=== PATIENT | female | born 1970 | race Caucasian/White ===

== ENCOUNTER 2022-04-23 21:53 | Inpatient (IN) | payer OTHER, SELFPAY ==
[2022-04-23] MEDS: busPIRone HCl 10 MG TABLET 20 MG PO (23:23)
[2022-04-23] MEDS: traZODone HCL 50 MG TABLET PO (23:23)
[2022-04-23] MEDS: clonazePAM 1 MG TABLET PO (23:23)
--- NOTE | 2022-04-23 23:59 | PC.NURSE ---
pt signed a 3-day notice on 04-23-22, up on 04/28/22
--- NOTE | 2022-04-24 01:14 | PC.ADMIT ---
pt. is a 51 year old white [place] Islander speaking woman who presents to [facility] from the [facility] [place] [place] at approx. 22:10 on a CV status. Pt. signed upon arrival a 3 day notice. Pt. is Covid neg. Pt. was admitted per section 12 to the ED at [facility] on 04/20 22 related to psychosis and confusion. Pt. has a previous DX of major depressive disorder and generalized anxiety per medical report. During her assessment at [facility] Pt. contradicted herself on and off. She denied trauma but reported her sister committed suicide. Pt. appeared confused and paranoid at times, selective with answers to questions, not forthcoming at times but friendly, superficially cheerful with good eye contact. She stated she is having menopause and this is causing her mind not working . medication orders received by Ema TURPIN, Pt. was oriented to unit. Pt. is on 5 min. checks, treatment plan was done upon arrival. flu shot and nicotine replacement were ordered, Pt. reported she vapes'. Pt reported she feels safe, she was oriented to the unit
[2022-04-24 09:10] LABS: Estimated Average Glucose 105 mg/dL; Hemoglobin A1c % 5.3 %
[2022-04-24 09:19] LABS: Alanine Aminotransferase 23 U/L (0-31); Albumin Level 3.7 g/dL (3.5-5.0); Alkaline Phosphatase 44 U/L (39-117); Anion Gap 14 (12-20); Aspartate Amino Transferase 15 U/L (5-31); Bilirubin Total 0.8 mg/dL (0.0-1.0); Blood Urea Nitrogen 12 mg/dL (9-16); Calcium 9.2 mg/dL (8.4-10.2); Carbon Dioxide 30 mmol/L (22-29); Chloride 104 mmol/L (96-108); Cholesterol 147 mg/dL; Estimated Glomerular Filt Rate > 60; Glucose Fasting 92 mg/dL (60-99); HDL Cholesterol 38 mg/dL; LDL Cholesterol Calculated 96 mg/dl; Magnesium 1.8 mg/dL (1.6-2.6); Sodium 144 mmol/L (135-145); Total Protein 5.9 g/dL (6.5-8.0); Triglycerides 65 mg/dL
[2022-04-24] MEDS: Escitalopram Oxalate 10 MG TABLET PO (09:23)
[2022-04-24] MEDS: busPIRone HCl 10 MG TABLET 20 MG PO ×2 (09:23→20:23)
[2022-04-24] MEDS: clonazePAM 1 MG TABLET PO ×2 (09:23→20:23)
[2022-04-24 09:42] LABS: Free T4 (Free Thyroxine) 1.22 ng/dL (0.71-1.85); Thyroid Stimulating Hormone 0.44 uIU/mL (0.32-4.0)
--- NOTE | 2022-04-24 10:41 | HO.PSYADMNOT ---
[facility] Date of Service: 04/24/22 Chief Complaint: Major depressive disorder,recurrent episode with Sources of Information: patient interviewed, chart reviewed and crisis/core team assessment reviewed [facility] Subjective Notes: Nunez Warning and Conditional Voluntary Narrative: Patient is a 51-year-old female with history anxiety, PTSD, paranoid thoughts, alcohol abuse sober for 4 months, who presents for 3-4 days of confused disorganized behavior, brought in by her fiance to the emergency room. Patient is a little disorganized in her explanation of events preceding this admission and says she was indeed confused. She is not sure what the trigger was but thinks that it was 1 of her 8 sisters texting her saying that her fiance was having an affair. Patient said to deal with this stress of this, she started smoking excessive amounts of cannabis. Patient says she was confused for 3 days, not sleeping, having lots of energy, mind racing that would not stop and doing things like putting her underwear in her sock drawer. Crisis note includes that patient presented to the emergency room dehydrated, not having eaten for 4 days, disorganized, at times screaming out of nowhere and then sitting back down as if nothing happened, very anxious and refusing to talk to any providers and paranoid that people were after her.. Patient agrees that when she got to the emergency room she was very scared and did not want to talk to anybody, worried that she would be put away permanently in a psychiatric cab[facility]. She also says she saw people at the hospital who were not supposed to be there, 1 person being her ex-'s girlfriend who pointed at her and said i'm going to kick your... Patient said that nobody else saw them tell her it is at a hallucination however she says it is real. Patient denies any AVH; she denies any other history of manic type episodes. She denies SI or HI. She says she started to feel more calm and much less confused. She also said she got off Wellbutrin when going to the ED and wonders if Wellbutrin was partly the cause of this agitation. 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 Sober for 4 months; was on Vivitrol but no longer saying it made her nauseous Denies other drug use other than cannabis Trauma History: Patient endorses history of trauma and she was little; has flashbacks Diagnostics Vital Signs (24Hr): Vital Signs - 24 hr 04/23/22 23:55 Temperature 97.0 F Pulse Rate 76 Respiratory Rate 16 Blood Pressure 134/70 Pulse Oximetry 99 Oxygen Delivery Method Room Air Labs Results: 04/24/22 07:35 Labs: Laboratory Results - last 48 hr 04/24/22 04/24/22 07:35 07:35 Sodium 144 Potassium 4.0 Chloride 104 Carbon Dioxide 30 H Anion Gap 14 BUN 12 Creatinine 0.64 Estim Creat Clear Calc TNP Estimated GFR > 60 Fasting Glucose 92 Estimat Average Glucose 105 Hemoglobin A1c % 5.3 Calcium 9.2 Magnesium 1.8 Total Bilirubin 0.8 AST 15 ALT 23 Alkaline Phosphatase 44 Total Protein 5.9 L Albumin 3.7 Triglycerides 65 Cholesterol 147 LDL Cholesterol, Calc 96 HDL Cholesterol 38 TSH 0.44 Free T4 1.22 Meds/Allergies Allergies Allergies Allergy/AdvReac Type Severity Reaction Status Date / Time No Known Allergies Allergy Verified 04/23/22 22:16 Mental Status Exam Mental Status Exam Narrative: Pt is alert and oriented; behavior is cooperative, friendly, fidgety; patient is not in distress; dressed in hospital attire with unkempt hair but adequate hygiene; mood is described as ok and affect anxious; eye contact appropriate; Speech is mildly pressured; normal volume and prosody and not pressured; no psychomotor agitation/retardation present; thought process can be goal directed but also tangential; Thought content is on making sense of past week; also on tx; otherwise pertinent to relevant topics; some delusional content and paranoid thinking; denies any SI/HI. There is no evidence of perceptual disturbance and denies AVH. Patients insight and judgment are impaired. Assessment & Plan Assessment & Plan (1) Major depressive disorder: Status: Acute Code(s): F32.9 - Major depressive disorder, single episode, unspecified (2) Cannabis abuse, daily use: Status: Acute Code(s): F12.10 - Cannabis abuse, uncomplicated Plan Patient is a 51-year-old female with history anxiety, PTSD, paranoid thoughts, alcohol abuse sober for 4 months, who presents for 3-4 days of confused disorganized behavior, brought in by her fiance to the emergency room. Patient is a little disorganized in her explanation of events preceding this admission and says she was indeed confused. -patient has what sounds like a manic episode that lasted for 4 days and marked by disorganized behavior, not eating or drinking, not sleeping and very confused; possibly triggered by stress or Wellbutrin. That said patient denies any other episodes of иван and she is not on medications for bipolar. Will leave it as a rule out for now until we can get more collateral. Patient also has a prescription for Zyprexa 5 mg as a p.r.n. for paranoid thinking. -will add Zyprexa 2.5 mg q.h.s. for now; although she has much anxiety, to not want to increase Lexapro (substituted for citalopram) until bipolar can be ruled out. Plan: Three day notice Continue Lexapro 10 mg (substituted for patient's home medication citalopram 20 mg) Continue BuSpar 20 mg b.i.d. Continue clonazepam 1 mg b.i.d. Start Zyprexa 2.5 mg q.h.s. for stability Added clonidine for anxiety Will gather collateral Patient educated on: diagnosis, medication risk/benefits and substance abuse Informed Consent: understands and further education needed Reason for continued inpatient stay Substantial Risk for: inability to function
[2022-04-24] MEDS: OLANZapine 2.5 MG TABLET PO ×2 (11:20→20:22)
--- NOTE | 2022-04-24 12:43 | P.CONHOSP_ITS ---
History of Present Illness Data of Consult Service Date: 04/24/22 Requesting physician: Ema García Primary Care Provider: Unknown Physician HPI Reason for consult: medical h&p 51 year old female with depression, who is a daily marijuana smoker and vapes nicotine admitted to psychiatry. She denies any chronic medical issues and denies and medical concerns at this time. States she has been struggling with depression since the loss of her mother and father to covid-19. Review of Systems Review of Systems: General: No fevers, malaise, unintentional weight loss HEENT: No blurred vision, diplopia Cardiovascular: No chest pain, palpitations, or leg edema Respiratory: No shortness of breath, wheezing, cough GI: No abdominal pain, nausea, vomiting, diarrhea, constipation, melena, hematochezia : No dysuria, hematuria Neuro: No headaches, weakness, paresthesias Psych: +dpression Skin: No rashes or lesions PMFSH Medical History Cannabis abuse, daily use Major depressive disorder Nicotine dependence due to vaping non-tobacco product Social History Household Members: Significant Other Housing: House Do you presently have visiting nurse or other home services: No Patient Tobacco Use Status: Former Tobacco user Years Smoked: 20 years Smoked in Last 30 Days: Yes e-Cigarette/Vaping Use: Currently Using Frequency of e-Cigarette/Vaping Use: vapes every day Patient Interested in Nicotine Replacement: Yes Patient Given Instructions on How to Stop Smoking: No Second Hand Smoke Exposure: No Use of substances other than those prescribed or required for medical reasons: Unknown Have you been hit, kicked, punched, or otherwise hurt by someone within the past year? If so, by whom?: No Do you feel safe in your current relationship?: Yes Is there a partner from a previous relationship who is making you feel unsafe now?: Yes ( my sisters are bad ) Are you made to feel afraid or neglected: No Spiritual Healthcare Practices: no Orthodoxy Healthcare Practices: latter-day Cultural Healthcare Practices: no Advance Directives: No Advance Directives Information Provided: No Advance Directives on File: No Advance Directives Date on File: 04/23/22 Do you have thoughts of harming others: None Do you have a plan to hurt others: No Plan Recently lost weight without trying: Yes How much weight loss: 2-13 pounds Eating poorly because of decreased appetite: No Nutrition screen score: 3 Nutrition Risks: No Nutritional Risk Patient : No : No Poor oral hygiene: No Meds Allergies Allergy/AdvReac Type Severity Reaction Status Date / Time No Known Allergies Allergy Verified 04/23/22 22:16 Active Medications: Current Medications Acetaminophen (Acetaminophen 325 Mg Tablet) 650 mg PO Q6H PRN PRN Reason: Headache/Pain Mild Scale (1-3) Al Hydroxide/Mg Hydroxide (Magnesium Hydrox/Alum Hydrox 30 Ml Oral.Susp) 30 ml PO Q6H PRN PRN Reason: Heartburn/Nausea Buspirone HCl (Buspirone Hcl 10 Mg Tablet) 20 mg PO BID [facility] Last Admin: 04/24/22 09:23 Dose: 20 mg Clonazepam (Clonazepam 1 Mg Tablet) 1 mg PO BID [facility] Last Admin: 04/24/22 09:23 Dose: 1 mg Escitalopram Oxalate (Escitalopram Oxalate 10 Mg Tablet) 10 mg PO DAILY [facility] Last Admin: 04/24/22 09:23 Dose: 10 mg Hydroxyzine HCl (Hydroxyzine Hcl 25 Mg Tablet) 25 mg PO Q6H PRN PRN Reason: Anxiety Magnesium Hydroxide (Milk Of Magnesia 30 Ml Oral.Susp) 30 ml PO DAILY PRN PRN Reason: Constipation Olanzapine (Olanzapine 2.5 Mg Tablet) 2.5 mg PO BID [facility] Trazodone HCl (Trazodone Hcl 50 Mg Tablet) 50 mg PO BEDTIME PRN PRN Reason: Insomnia Last Admin: 04/23/22 23:23 Dose: 50 mg Physical Exam Vital Signs and Narrative: Vital Signs: Last Vital Signs Temp 97.0 F 04/23/22 23:55 Pulse 76 04/23/22 23:55 Resp 16 04/23/22 23:55 BP 134/70 04/23/22 23:55 Pulse Ox 99 04/23/22 23:55 O2 Del Method 04/23/22 23:55 Constitutional - Awake and Alert, No apparent distress Eyes - PERRLA, EOMI Cardiovascular - S1S2, RRR, No edema Respiratory - Normal lung expansion, Normal respiratory effort, No respiratory distress, CTA bilaterally Gastrointestinal - NT / ND; +BS; No rebound or guarding Extremities - no calf tenderness bilaterally, no swelling Skin - Warm/Dry Neurological - Alert & oriented x3, CN II -XII intact, 5/5 strength BUE and BLE Psychological - Appropriate affect Results Labs CBC and Chem 7: 04/24/22 07:35 Labs: Laboratory Results - last 24 hr 04/24/22 04/24/22 07:35 07:35 Anion Gap 14 Estim Creat Clear Calc TNP Estimated GFR > 60 Fasting Glucose 92 Estimat Average Glucose 105 Hemoglobin A1c % 5.3 Calcium 9.2 Magnesium 1.8 Total Bilirubin 0.8 AST 15 ALT 23 Alkaline Phosphatase 44 Total Protein 5.9 L Albumin 3.7 Triglycerides 65 Cholesterol 147 LDL Cholesterol, Calc 96 HDL Cholesterol 38 TSH 0.44 Free T4 1.22 Assessment and Plan (1) Major depressive disorder: Status: Acute Plan 51 year old female with depression, who is a daily marijuana smoker and vapes nicotine admitted to psychiatry. 1- Major depressive disorder, currently active -Plan per psychiatry 2-Nicotine vaping -Last use 5 days ago -Pt desires to quit. No NRT 3-Daily Marijuana use -Recommend against smoking, would recommend edible instead. -However, plan per psychiatry. Thank you for allowing me to participate in this consult. Signing off at this time. Please do not hesitate to call for further questions.
[2022-04-24 18:00] VITALS: BP 119/78; PULSE 79; RESP 16; TEMP 36.6; O2SAT 99
[2022-04-25] MEDS: Acetaminophen 325 MG TABLET 650 MG PO (05:50)
[2022-04-25] MEDS: Escitalopram Oxalate 10 MG TABLET PO (08:59)
[2022-04-25] MEDS: busPIRone HCl 10 MG TABLET 20 MG PO ×2 (08:59→20:11)
[2022-04-25] MEDS: clonazePAM 1 MG TABLET PO ×2 (09:00→20:11)
--- NOTE | 2022-04-25 14:33 | HO.PSYCHPN ---
Subjective Subjective Date of Service: 04/25/22 Reason For Visit: Major depressive disorder,recurrent episode with Interim History: Patient reports that she is doing well. She says her mood is good and denies any SI or HI or AVH. She also says that she feels much more clear minded And that Confusion has pretty much fully resolved. Patient said she would be happy to sign a release of information so that team could talk to her fiance. Mental Status Exam Mental Status Exam Narrative: Pt is alert and oriented; behavior is cooperative, friendly, fidgety; patient is not in distress; dressed in hospital attire with unkempt hair but adequate hygiene; mood is described as better and affect congruent, less anxious; eye contact appropriate; Speech is normal volume and prosody and not pressured; no psychomotor agitation/retardation present; thought process can be goal directed, still tangential but less; Thought content is on making sense of past week; also on tx; otherwise pertinent to relevant topics; some delusional content and paranoid thinking; denies any SI/HI. There is no evidence of perceptual disturbance and denies AVH. Patients insight and judgment are impaired but seem improved. Diagnostics Vital Signs (24Hr): Vital Signs - 24 hr 04/24/22 18:00 Temperature 98 F Pulse Rate 79 Respiratory Rate 16 Blood Pressure 119/78 Pulse Oximetry 99 Oxygen Delivery Method Room Air Labs Results: 04/24/22 07:35 Labs: Laboratory Results - last 48 hr 04/24/22 04/24/22 07:35 07:35 Sodium 144 Potassium 4.0 Chloride 104 Carbon Dioxide 30 H Anion Gap 14 BUN 12 Creatinine 0.64 Estim Creat Clear Calc TNP Estimated GFR > 60 Fasting Glucose 92 Estimat Average Glucose 105 Hemoglobin A1c % 5.3 Calcium 9.2 Magnesium 1.8 Total Bilirubin 0.8 AST 15 ALT 23 Alkaline Phosphatase 44 Total Protein 5.9 L Albumin 3.7 Triglycerides 65 Cholesterol 147 LDL Cholesterol, Calc 96 HDL Cholesterol 38 TSH 0.44 Free T4 1.22 Medications Medications Current Medications Acetaminophen (Acetaminophen 325 Mg Tablet) 650 mg PO Q6H PRN PRN Reason: Headache/Pain Mild Scale (1-3) Last Admin: 04/25/22 05:50 Dose: 650 mg Al Hydroxide/Mg Hydroxide (Magnesium Hydrox/Alum Hydrox 30 Ml Oral.Susp) 30 ml PO Q6H PRN PRN Reason: Heartburn/Nausea Buspirone HCl (Buspirone Hcl 10 Mg Tablet) 20 mg PO BID [facility] Last Admin: 04/25/22 08:59 Dose: 20 mg Clonazepam (Clonazepam 1 Mg Tablet) 1 mg PO BID [facility] Last Admin: 04/25/22 09:00 Dose: 1 mg Clonidine HCl (Clonidine Hcl 0.1 Mg Tablet) 0.1 mg PO Q4H PRN; Protocol PRN Reason: anxiety Escitalopram Oxalate (Escitalopram Oxalate 10 Mg Tablet) 10 mg PO DAILY [facility] Last Admin: 04/25/22 08:59 Dose: 10 mg Hydroxyzine HCl (Hydroxyzine Hcl 25 Mg Tablet) 25 mg PO Q6H PRN PRN Reason: Anxiety Magnesium Hydroxide (Milk Of Magnesia 30 Ml Oral.Susp) 30 ml PO DAILY PRN PRN Reason: Constipation Olanzapine (Olanzapine 2.5 Mg Tablet) 2.5 mg PO BEDTIME [facility] Last Admin: 04/24/22 20:22 Dose: 2.5 mg Trazodone HCl (Trazodone Hcl 50 Mg Tablet) 50 mg PO BEDTIME PRN PRN Reason: Insomnia Last Admin: 04/23/22 23:23 Dose: 50 mg Allergies Allergies Allergy/AdvReac Type Severity Reaction Status Date / Time No Known Allergies Allergy Verified 04/23/22 22:16 Assessment & Plan Assessment & Plan (1) Major depressive disorder: Status: Acute Code(s): F32.9 - Major depressive disorder, single episode, unspecified (2) Cannabis abuse, daily use: Status: Acute Code(s): F12.10 - Cannabis abuse, uncomplicated Plan Patient is a 51-year-old female with history anxiety, PTSD, paranoid thoughts, alcohol abuse sober for 4 months, who presents for 3-4 days of confused disorganized behavior, brought in by her fiance to the emergency room. Patient is a little disorganized in her explanation of events preceding this admission and says she was indeed confused. -patient has what sounds like a manic episode that lasted for 4 days and marked by disorganized behavior, not eating or drinking, not sleeping and very confused; possibly triggered by stress or Wellbutrin. That said patient denies any other episodes of иван and she is not on medications for bipolar. Will leave it as a rule out for now until we can get more collateral. Patient also has a prescription for Zyprexa 5 mg as a p.r.n. for paranoid thinking. -will add Zyprexa 2.5 mg q.h.s. for now; although she has much anxiety, to not want to increase Lexapro (substituted for citalopram) until bipolar can be ruled out. 04/25 patient says she is feeling a better today, good mood and feeling much more clear minded, less confused and less anxious. She agrees to have team talk to her fiance. Collateral will certainly help inform treatment Plan: Three day notice Continue Lexapro 10 mg (substituted for patient's home medication citalopram 20 mg) Continue BuSpar 20 mg b.i.d. Continue clonazepam 1 mg b.i.d. Start Zyprexa 2.5 mg q.h.s. for stability Added clonidine for anxiety Will gather collateral I spent minutes with the patient and/or on the patient floor today, greater than?50% of which was spent counseling/coordinating care. Patient educated on: diagnosis and medication risk/benefits Informed Consent: understands Reason for contiued inpatient stay Substantial Risk for: med/psych decompensation
[2022-04-25 18:00] VITALS: BP 149/67; PULSE 82; RESP 16; TEMP 36.6; O2SAT 98
[2022-04-25] MEDS: OLANZapine 2.5 MG TABLET PO (20:11)
[2022-04-26 06:01] LABS: Folate 5.7 ng/mL (> or = 4.0); Vitamin B12 239 pg/mL (200-900)
[2022-04-26 08:03] VITALS: BP 129/59; PULSE 70; TEMP 36.3
[2022-04-26] MEDS: Escitalopram Oxalate 10 MG TABLET PO (09:08)
[2022-04-26] MEDS: busPIRone HCl 10 MG TABLET 20 MG PO ×2 (09:08→21:30)
[2022-04-26] MEDS: clonazePAM 1 MG TABLET PO ×2 (09:08→21:30)
--- NOTE | 2022-04-26 13:49 | P.PNPSI_ITS ---
Subjective Subjective Date of Service: 04/26/22 Reason For Visit: Major depressive disorder,recurrent episode with Interim History: Patient says she is feeling better and of note she has a brighter affect, is well dressed and well groomed. She says that she is feeling more clear minded a nd no longer has shakey hands due to anxiety. She said that today, she got up, dressed and is eating well. Patient shared a little more and said that what triggered this dysregulation was an intense family argument. She said it was personal in nature and did not want to discuss it more but that was the onset. Patient and curriculum writer reviewed medication history and patient does not remember being him prescribed Zyprexa back in October saying she was drinking back then and probably just does not remember. Patient also shared that her father in 2019 and then her mother 8 months ago, both from COVID which has been very upsetting. Patient started to get tearful when discussing. She also cites strained family relationships as another contribution which is part of what the family argument was about. Patient says she feels ready to go. She denies any SI or HI. She says she is sleeping well. Denies any AVH. She feels that her medications are good. Patient intermittently puckers her lips when talking; she denies history of being on antipsychotics that she can remember. She says she is well aware of this and only does it when she is anxious. Mental Status Exam Mental Status Exam Narrative: Pt is alert and oriented; behavior is cooperative, friendly; patient is not in distress; dressed in casual attired, well groomed; mood is described as good and affect congruent, bright, calmer; intermittently puckers her lips which she says is due to nerves. eye contact appropriate; Speech is normal volume and prosody and not pressured; no psychomotor agitation/retardation present; thought process is goal directed and linear; can be distracted too; Thought content is on going home, feeling better; otherwise pertinent to relevant topics; some delusional content and paranoid thinking; denies any SI/HI. There is no evidence of perceptual disturbance and denies AVH. Patients insight and judgment are fair. Diagnostics Vital Signs (24Hr): Vital Signs - 24 hr 04/25/22 18:00 04/26/22 08:03 Temperature 98 F 97.4 F Pulse Rate 82 70 Respiratory Rate 16 Blood Pressure 149/67 H 129/59 L Pulse Oximetry 98 Oxygen Delivery Method Room Air Labs Results: 04/24/22 07:35 Labs: Laboratory Results - last 48 hr 04/24/22 07:35 Vitamin B12 239 Folate 5.7 Medications Medications Current Medications Acetaminophen (Acetaminophen 325 Mg Tablet) 650 mg PO Q6H PRN PRN Reason: Headache/Pain Mild Scale (1-3) Last Admin: 04/25/22 05:50 Dose: 650 mg Al Hydroxide/Mg Hydroxide (Magnesium Hydrox/Alum Hydrox 30 Ml Oral.Susp) 30 ml PO Q6H PRN PRN Reason: Heartburn/Nausea Buspirone HCl (Buspirone Hcl 10 Mg Tablet) 20 mg PO BID [facility] Last Admin: 04/26/22 09:08 Dose: 20 mg Clonazepam (Clonazepam 1 Mg Tablet) 1 mg PO BID [facility] Last Admin: 04/26/22 09:08 Dose: 1 mg Clonidine HCl (Clonidine Hcl 0.1 Mg Tablet) 0.1 mg PO Q4H PRN; Protocol PRN Reason: anxiety Escitalopram Oxalate (Escitalopram Oxalate 10 Mg Tablet) 10 mg PO DAILY [facility] Last Admin: 04/26/22 09:08 Dose: 10 mg Hydroxyzine HCl (Hydroxyzine Hcl 25 Mg Tablet) 25 mg PO Q6H PRN PRN Reason: Anxiety Magnesium Hydroxide (Milk Of Magnesia 30 Ml Oral.Susp) 30 ml PO DAILY PRN PRN Reason: Constipation Olanzapine (Olanzapine 2.5 Mg Tablet) 2.5 mg PO BEDTIME [facility] Last Admin: 04/25/22 20:11 Dose: 2.5 mg Trazodone HCl (Trazodone Hcl 50 Mg Tablet) 50 mg PO BEDTIME PRN PRN Reason: Insomnia Last Admin: 04/23/22 23:23 Dose: 50 mg Allergies Allergies Allergy/AdvReac Type Severity Reaction Status Date / Time No Known Allergies Allergy Verified 04/23/22 22:16 Assessment & Plan Assessment & Plan (1) Major depressive disorder: Status: Acute Code(s): F32.9 - Major depressive disorder, single episode, unspecified (2) Cannabis abuse, daily use: Status: Acute Code(s): F12.10 - Cannabis abuse, uncomplicated Plan Patient is a 51-year-old female with history anxiety, PTSD, paranoid thoughts, alcohol abuse sober for 4 months, who presents for 3-4 days of confused disorganized behavior, brought in by her fiance to the emergency room. Patient is a little disorganized in her explanation of events preceding this admission and says she was indeed confused. -patient has what sounds like a manic episode that lasted for 4 days and marked by disorganized behavior, not eating or drinking, not sleeping and very confused; possibly triggered by stress or Wellbutrin. That said patient denies any other episodes of иван and she is not on medications for bipolar. Will leave it as a rule out for now until we can get more collateral. Patient also has a prescription for Zyprexa 5 mg as a p.r.n. for paranoid thinking. -will add Zyprexa 2.5 mg q.h.s. for now; although she has much anxiety, to not want to increase Lexapro (substituted for citalopram) until bipolar can be ruled out. 04/25 patient says she is feeling a better today, good mood and feeling much more clear minded, less confused and less anxious. She agrees to have team talk to her fiance. Collateral will certainly help inform treatment 04/26 patient says her mood is good and that she is feeling ready to go home. Of note, affect is brighter and calmer; she is well dressed and well groomed. She feels medications are helpful. She thinks that the trigger for this several days of dysregulation was an intense, upsetting family argument that she does not want to discuss. She says I was not even eating or drinking for days but that this has fully resolved and she is doing well now. Feels medications are helpful and wants to continue with current regimen -is still not clear to curriculum writer if she has a history of hypomanic episodes as patient herself is not sure. However while this past event does sound like a hypomanic episode, curriculum writer agrees it is possible for her to be triggered by a combination of PTSD and proclivity to emotional dysregulation. Patient gave permission to curriculum writer and administrator social welfare to call her sister and catracho to discuss. Plan: Three day notice Continue Lexapro 10 mg (substituted for patient's home medication citalopram 20 mg) Continue BuSpar 20 mg b.i.d. Continue clonazepam 1 mg b.i.d. Start Zyprexa 2.5 mg q.h.s. for stability Added clonidine for anxiety Will gather collateral I spent minutes with the patient and/or on the patient floor today, greater than?50% of which was spent counseling/coordinating care. Patient educated on: diagnosis, medication risk/benefits and substance abuse Informed Consent: understands Reason for contiued inpatient stay Substantial Risk for: stable for discharge
[2022-04-26 18:00] VITALS: BP 122/65; PULSE 81; RESP 18; TEMP 37.1
[2022-04-26] MEDS: hydrOXYzine HCL 25 MG TABLET PO (18:19)
[2022-04-26] MEDS: OLANZapine 2.5 MG TABLET PO (21:30)
[2022-04-27 08:03] VITALS: BP 110/71; PULSE 93; TEMP 36.1
[2022-04-27] MEDS: clonazePAM 1 MG TABLET PO ×2 (08:58→20:54)
[2022-04-27] MEDS: Escitalopram Oxalate 10 MG TABLET PO (08:58)
[2022-04-27] MEDS: busPIRone HCl 10 MG TABLET 20 MG PO ×2 (08:58→20:54)
--- NOTE | 2022-04-27 10:18 | HO.PSYCHPN ---
Subjective Subjective Date of Service: 04/27/22 Reason For Visit: Major depressive disorder,recurrent episode with Interim History: Patient reports that she remains in good mood and is looking for to going home. She is afraid of 1 of the other patients on the unit who is intrusive and aggressive but patient has been able to cope and grateful to staff for helping. Patient remains eager for discharge tomorrow. She denies any SI or HI or AVH. She has been in good mood, with bright affect, well-groomed, attending groups and expressing gratitude for the help she has received, feeling that the group material has been helpful. Patient has remained in good behavioral and impulse control. Patient had team call both /fiancee and sister. Sister reports that patient has a history of intermittently getting delusional and sometimes hearing voices; also has had past time where she had paranoid delusions that people were spitting in her food. Report sounds that it is possible she had some intermittent hypomania in her history but this is not conclusive. Patient is not able to confirm. However sister says she had no such episodes prior to her parents 2 years. Patient's fiancee who has been together with patient for 10 years, corroborated that prior to her parents there were no episodes or significant problems other than some anxiety. After her mother's , patient would sometimes get paranoid and accuse him of infidelity; 1 she pushed him and made a threat and police came.; once she was outside without much clothing disorganized. Given this collateral, Sheet Rocker discussed with patient who agrees that she would benefit from increased dose of Zyprexa Mental Status Exam Mental Status Exam Narrative: Pt is alert and oriented; behavior is cooperative, friendly; patient is not in distress; dressed in casual attired, well groomed; mood is described as good and affect congruent, bright, calmer; intermittently puckers her lips which she says is due to nerves. eye contact appropriate; Speech is normal volume and prosody and not pressured; no psychomotor agitation/retardation present; thought process is goal directed and linear; can be distracted too; Thought content is on going home, feeling better; otherwise pertinent to relevant topics; some delusional content and paranoid thinking; denies any SI/HI. There is no evidence of perceptual disturbance and denies AVH. Patients insight and judgment are fair. Diagnostics Vital Signs (24Hr): Vital Signs - 24 hr 04/26/22 18:00 04/27/22 08:03 Temperature 98.7 F 97 F Pulse Rate 81 93 Respiratory Rate 18 Blood Pressure 122/65 110/71 Labs Results: 04/24/22 07:35 Labs: Laboratory Results - last 48 hr 04/24/22 07:35 Vitamin B12 239 Folate 5.7 Medications Medications Current Medications Acetaminophen (Acetaminophen 325 Mg Tablet) 650 mg PO Q6H PRN PRN Reason: Headache/Pain Mild Scale (1-3) Last Admin: 04/25/22 05:50 Dose: 650 mg Al Hydroxide/Mg Hydroxide (Magnesium Hydrox/Alum Hydrox 30 Ml Oral.Susp) 30 ml PO Q6H PRN PRN Reason: Heartburn/Nausea Buspirone HCl (Buspirone Hcl 10 Mg Tablet) 20 mg PO BID [facility] Last Admin: 04/27/22 08:58 Dose: 20 mg Clonazepam (Clonazepam 1 Mg Tablet) 1 mg PO BID [facility] Last Admin: 04/27/22 08:58 Dose: 1 mg Clonidine HCl (Clonidine Hcl 0.1 Mg Tablet) 0.1 mg PO Q4H PRN; Protocol PRN Reason: anxiety Escitalopram Oxalate (Escitalopram Oxalate 10 Mg Tablet) 10 mg PO DAILY [facility] Last Admin: 04/27/22 08:58 Dose: 10 mg Hydroxyzine HCl (Hydroxyzine Hcl 25 Mg Tablet) 25 mg PO Q6H PRN PRN Reason: Anxiety Last Admin: 04/26/22 18:19 Dose: 25 mg Magnesium Hydroxide (Milk Of Magnesia 30 Ml Oral.Susp) 30 ml PO DAILY PRN PRN Reason: Constipation Olanzapine (Olanzapine 2.5 Mg Tablet) 2.5 mg PO BEDTIME [facility] Last Admin: 04/26/22 21:30 Dose: 2.5 mg Trazodone HCl (Trazodone Hcl 50 Mg Tablet) 50 mg PO BEDTIME PRN PRN Reason: Insomnia Last Admin: 04/23/22 23:23 Dose: 50 mg Allergies Allergies Allergy/AdvReac Type Severity Reaction Status Date / Time No Known Allergies Allergy Verified 04/23/22 22:16 Assessment & Plan Assessment & Plan (1) Major depressive disorder: Status: Acute Code(s): F32.9 - Major depressive disorder, single episode, unspecified (2) Cannabis abuse, daily use: Status: Acute Code(s): F12.10 - Cannabis abuse, uncomplicated Plan Patient is a 51-year-old female with history anxiety, PTSD, paranoid thoughts, alcohol abuse sober for 4 months, who presents for 3-4 days of confused disorganized behavior, brought in by her fiance to the emergency room. Patient is a little disorganized in her explanation of events preceding this admission and says she was indeed confused. -patient has what sounds like a manic episode that lasted for 4 days and marked by disorganized behavior, not eating or drinking, not sleeping and very confused; possibly triggered by stress or Wellbutrin. That said patient denies any other episodes of иван and she is not on medications for bipolar. Will leave it as a rule out for now until we can get more collateral. Patient also has a prescription for Zyprexa 5 mg as a p.r.n. for paranoid thinking. -will add Zyprexa 2.5 mg q.h.s. for now; although she has much anxiety, to not want to increase Lexapro (substituted for citalopram) until bipolar can be ruled out. 04/25 patient says she is feeling a better today, good mood and feeling much more clear minded, less confused and less anxious. She agrees to have team talk to her fiance. Collateral will certainly help inform treatment 04/26 patient says her mood is good and that she is feeling ready to go home. Of note, affect is brighter and calmer; she is well dressed and well groomed. She feels medications are helpful. She thinks that the trigger for this several days of dysregulation was an intense, upsetting family argument that she does not want to discuss. She says I was not even eating or drinking for days but that this has fully resolved and she is doing well now. Feels medications are helpful and wants to continue with current regimen -is still not clear to proposal writer if she has a history of hypomanic episodes as patient herself is not sure. However while this past event does sound like a hypomanic episode, proposal writer agrees it is possible for her to be triggered by a combination of PTSD and proclivity to emotional dysregulation. Patient gave permission to proposal writer and social contact worker to call her sister and fiancee to discuss. 04/27 Patient's sister and fiancee shared that prior to her parents , patient has not had any such episodes. After her mother's 2 years ago patient has had a few episodes of confusion paranoia. Of note patient was also drinking heavily during these times. She may have had some hypomania in the past but this is not able to be concluded and patient is unsure of this. That said patient was willing to increase Zyprexa to 5 mg since sister says still intermittently she will have some delusional thinking with AH. She remains in good mood, with bright affect, well-groomed and looking forward to discharge tomorrow. Patient is eating and drinking well and reports sleeping well. She denies any SI or HI or AVH. Patient attending groups and expressing gratitude for the help she has received from both staff and groups. Patient has remained in good behavioral and impulse control. Patient is not in imminent risk for harm to self or others and she is returning to supportive family, fiancee/sister. Her request for discharge honored. Plan: Three day notice Continue Lexapro 10 mg (substituted for patient's home medication citalopram 20 mg) Continue BuSpar 20 mg b.i.d. Continue clonazepam 1 mg b.i.d. Increased Zyprexa 5 mg q.h.s. for stability Added clonidine for anxiety Will gather collateral I spent minutes with the patient and/or on the patient floor today, greater than?50% of which was spent counseling/coordinating care. Patient educated on: diagnosis, medication risk/benefits, substance abuse and therapeutic strategies Informed Consent: understands and further education needed Reason for contiued inpatient stay Substantial Risk for: stable for discharge
[2022-04-27] MEDS: Milk of Magnesia 30 ML ORAL.SUSP PO (16:54)
[2022-04-27 18:00] VITALS: BP 126/60; PULSE 82
[2022-04-27] MEDS: Acetaminophen 325 MG TABLET 650 MG PO (20:54)
[2022-04-27] MEDS: OLANZapine 5 MG TABLET PO (20:54)
[2022-04-28 06:00] VITALS: BP 129/62; PULSE 84; TEMP 36.3; O2SAT 98
[2022-04-28] MEDS: busPIRone HCl 10 MG TABLET 20 MG PO (08:28)
[2022-04-28] MEDS: Escitalopram Oxalate 10 MG TABLET PO (08:28)
[2022-04-28] MEDS: clonazePAM 1 MG TABLET PO (08:28)
--- NOTE | 2022-04-28 09:43 | P.DS_ITS ---
DS: Providers Provider Date of Service: 04/28/22 Date of admission: 04/23/22 21:53 Date of discharge: 04/28/22 Primary care physician: Unknown Physician Attending physician on admission: Ed Bradford Consults: 04/23/22 22:16 Consult to Hospitalist Routine Consulting Provider: Hospitalist Reason For Exam: New admit from [facility] Attending physician on discharge: Ed Bradford DS: Diagnosis Discharge Diagnosis (1) Major depressive disorder: Status: Acute (2) Cannabis abuse, daily use: Status: Acute Mental Status Exam Mental Status Exam Narrative: Pt is alert and oriented; behavior is cooperative, friendly; patient is not in distress; dressed in casual attired, well groomed; mood is described as good and affect congruent, bright, calmer; intermittently puckers her lips which she says is due to nerves. eye contact appropriate; Speech is normal volume and prosody and not pressured; no psychomotor agitation/retardation present; thought process is goal directed and linear; can be distracted too; Thought content is on going home, feeling better; otherwise pertinent to relevant topics; some delusional content and paranoid thinking; denies any SI/HI. There is no evidence of perceptual disturbance and denies AVH. Patients insight and judgment are fair. Data Data Completed and Pending Completed studies during hospitalization [Text1]: 04/24/22 04/24/22 04/24/22 07:35 07:35 07:35 Sodium 144 Potassium 4.0 Chloride 104 Carbon Dioxide 30 H Anion Gap 14 BUN 12 Creatinine 0.64 Estim Creat Clear Calc TNP Estimated GFR > 60 Fasting Glucose 92 Estimat Average Glucose 105 Hemoglobin A1c % 5.3 Calcium 9.2 Magnesium 1.8 Total Bilirubin 0.8 AST 15 ALT 23 Alkaline Phosphatase 44 Total Protein 5.9 L Albumin 3.7 Triglycerides 65 Cholesterol 147 LDL Cholesterol, Calc 96 HDL Cholesterol 38 Vitamin B12 239 Folate 5.7 TSH 0.44 Free T4 1.22 DS: Summary Hospital Course Hospital Course: HPI: Patient is a 51-year-old female with history anxiety, PTSD, paranoid thoughts, alcohol abuse sober for 4 months, who presents for 3-4 days of confused disorganized behavior, brought in by her fiance to the emergency room. Patient is a little disorganized in her explanation of events preceding this admission and says she was indeed confused. On Admission, patient was cooperative but anxious and a little disorganized, having trouble explaining her behaviors preceding admission. Patients presentation and crisis report leans towards possible manic episode that lasted for 4 days and marked by disorganized behavior, not eating or drinking, not sleeping and very confused. Initially patient was not sure of the trigger but later on she said it was immediately after a very intense upsetting family argum ent of which she did not want to share the details. Otherwise, patient denies any other episodes of иван and she is not on medications for bipolar. She does endorse history of anxiety and depression. Patient agreed to take Zyprexa 2.5 mg q.h.s. since she had a prescription for it as a p.r.n. for intermittent paranoid thinking. Over the next several days, patient significantly improved. Her mood was better, her anxiety was better, she was much more organized. Patient was eating and drinking sleeping well. She said she felt her mind was getting more clear and she felt less confused. Collateral was obtained Patient's sister and catracho shared that prior to her parents 2 years ago, patient has not had any such episodes. After her mother's however she had her 1st episode of confusion and paranoia. Separate from episodes pt would intermittently have some delusional thinking with AH. It is noteworthy that patient has been sober for the past 4 months and during the last 2 years was also drinking heavily during these times which muddles the picture. Some report of possible hypomania in the past but this is not able to be concluded. Patient's sister and catracho both felt that patient was at this point during the admission, back to her regular self and okay to discharge. Because of this history and the degree of dysregulation, report writer discussed with patient who ag wicho to increase Zyprexa to 5 mg. Not fully clear what the diagnosis is. Will remain with MDD, recurrent with psychotic symptoms that her mood congruent. Bipolar can remain a rule out. Patient has considerable anxiety and It is also possible that this episode (and others) are due to acute exacerbation of PTSD. Patient remained in good mood, anxiety well treated, clear minded, organized behavior and speech, well groomed, attending groups and appropriate with peers and staff, in good behavioral and impulse control. She requested discharge and will be returning to stay with her sister and then back to her own home with her fiance. Patient denies any SI or HI or AVH. She is not in imminent risk for harm to self or others and her request for discharge honored. Time spent discussing smoking cessation with patient: 3 to 10 minutes Status at Discharge Functional status at discharge: independent ambulation Overall status at discharge: patient is back to baseline Time Spent with Patient Time attestation: Total time spent providing and/or coordinating discharge services: Time spent: Less than 30 minutes Discharge Plan Discharge Patient Disposition: Hospice - Home Discharge Diagnosis: MDD, recurrent, severe with psychotic symptoms, in full remission (r/o bipolar II) Referrals: Therapy: Jewels Foley [Other] - 05/05/22 12:30 pm (This is a video Telehealth appointment) Psychiatry: BALBIR Sanford [Other] - 05/18/22 10:20 am (This is a video Telehealth appointment) Discharge Medications: New buspirone 10 mg Tablet 20 mg PO BID 30 Days Qty: 120 0RF clonazepam 1 mg Tablet 1 mg PO BID 30 Days Qty: 60 0RF escitalopram oxalate 10 mg Tablet 10 mg PO DAILY 30 Days Qty: 30 0RF Rx Instructions: discontinue Celexa olanzapine 5 mg Tablet 5 mg PO BEDTIME 30 Days Qty: 30 0RF Discharge Orders: Discharge Order (Routine); Ordered 04/28/22 Ordered By: Ed Bradford Diet: Regular diet Activity on Discharge: As tolerated Stand Alone Forms: Patient Portal Discharge page, Community Support Care Plan Goals: Maintain mood and safe behaviors Take medications as prescribed Continue to pursue sobriety Practice coping skills Continue with outpatient providers and reach out to them as needed Health Concerns: Mood stability and behaviors Sobriety Plan of Treatment: Follow up with your PCP, psychiatric provider and other outpatient providers regarding above concerns Take medications as prescribed Assessment: Risk assessment at time of discharge:? Patient was interviewed prior to discharge and found to be fully oriented and without any SI or HI. Patient has insight and demonstrates good judgment in terms of wanting to pursue treatment. Patient is not in imminent risk of harm to self or others and has a safety plan that includes presenting to the closest ER or calling 911 if feeling unsafe.? Patient has been observed closely by nursing and unit staff throughout admission; patient has not engaged in any behaviors that suggest dangerousness to self or others and has demonstrated appropriate behaviors and impulse control
--- OUTSIDE RECORDS SUMMARY | 2022-04-28 13:59 | XMS_ITS ---
:1970 Author Care Team Providers Name Role Phone DR. FARTUN EVANS Primary Care Provider [phone] ROBIN REYNOLDS Primary Care Provider [phone] Allergies Code Code System Name Reaction Severity Status Onset NKDA ? Notes: Some allergies listed in Docume nts: #[id number], #[id number], #[id number], #[id number] could not be added to this pat ient's chart. Please review these documents and add these allergies to the patient's chart manually as needed. Medications Name Status Start Date Stop Date ? ? acetaminophen 500 mg tablet Active ? Not available Afluria [id number](PF) 45 mcg (15 mcg x 3)/0.5 mL Unknown ? Not available intramuscular syringe azithromycin 250 mg tablet Unknown ? Not a vailable betamethasone dipropionate 0.05 % topical cream Unknown ? Not available biotin Unknown ? Not available buspirone 15 mg tablet Active ? Not avail able buspirone 30 mg tablet Active ? Not avail able ciprofloxacin 500 mg tablet Unknown ? Not available citalopram 40 mg tablet Active ? Not avai lable clindamycin 1 % lotion Unknown ? Not avail able This medication previously had a stop reason of entered in err or. clonazepam 1 mg tablet Active ? Not avail able clotrimazole-betamethasone 1 %-0.05 % topical cream Unknown ? Not available cyclobenzaprine 10 mg tablet Unknown ? Not available Take 1 tablet twice a day by oral route. cyclobenzaprine 5 mg tablet Completed ? 06/01 Take 1 tablet every day by oral route at bedtime for 10 days. Flucelvax (PF) 45 mcg (15 mcg x 3)/0.5 mL IM Active ? Not available syringe fluconazole 150 mg tablet Unknown ? Not av ailable hydrocodone 5 mg-acetaminophen 500 mg tablet Unknown ? Not available ibuprofen 800 mg tablet Active ? Not avai lable ketoconazole 2 % topical cream Completed ? 0 10/19/2013 Apply 1 application twice a day by topical route for 10 days. ketorolac 10 mg tablet Unknown ? Not avail able Klonopin 0.5 mg tablet Unknown ? Not avail able Take 1 tablet 3 times a day by oral route. mirtazapine 15 mg tablet Unknown ? Not pratibha ilable naltrexone Active ? Not available HCL 50 take one-half tablet by mouth twice a day naltrexone 50 mg tablet Active ? Not avai lable naproxen 250 mg tablet Unknown ? Not avail able naproxen 500 mg tablet Active ? Not avail able olanzapine 10 mg tablet Active ? Not avai lable olanzapine 5 mg tablet Active ? Not avail able oxcarbazepine 300 mg tablet Active ? Not available oxycodone-acetaminophen 5 mg-325 mg tablet Active ? Not available Proctosol HC 2.5 % rectal cream with applicator Unknown ? Not available propranolol 10 mg tablet Unknown ? Not pratibha ilable 1 tab daily sulfamethoxazole 800 mg-trimethoprim 160 mg tablet Unknown ? Not available Vivitrol 380 mg intramuscular suspension,extended Active ? Not available release zolpidem 10 mg tablet Unknown ? Not availa ble zolpidem 5 mg tablet Unknown ? Not availab le Problems Name Status Onset Date Source ? Tinea Corporis Active ? Encounter Hyperthyroidism Active ? Encounter Mood Disorder Active ? History Anxiety Active ? Encounter Tobacco Dependence Syndrome Active ? Hist ory Depressive Disorder Active ? History Child Attention Deficit Disorder Active ? History Insomnia Active ? Encounter Obstructive Sleep Apnea of Adult Active ? Encounter Asthma Active ? History Vaginitis and Vulvovaginitis Active ? Enc ounter Cyst of Ovary Active ? History Female Genital Organ Symptoms Active ? Hi story Polymenorrhea Active ? Encounter Menorrhagia Active ? Encounter Contact Dermatitis Active ? Encounter Alopecia Active ? History Epidermoid Cyst of Skin Active ? History Neck Pain Active ? History Sciatica Active ? Encounter Backache Active ? History Muscle Pain Active ? Encounter Dizziness Active ? Encounter Sleep Apnea Active ? Encounter Dysuria Active ? Encounter Abdominal Pain Active ? Encounter Elevated Level of Transaminase and Lactic Acid Dehydrogenase Act eez ? History Fracture of Phalanx of Foot Active ? Enco unter Procedures Date Name Performed by ? 04/10/2014 Endometrial Ablation Information not pratibha ilable Notes: hysteroscopy, Novasure, removal of Nexplanon - Dr. Clay 07/27/2012 Ultrasound, Pelvic Transvaginal [facility] (Central Scheduling) [address] [place] [id number] (Work Place) 07/10/2013 Ultrasound, Thyroid [facility] (Ce ntral Scheduling) [address] [place] [address] (Work Place) 12/19/2014 Eeg [facility] (Ce ntral Scheduling) [address] [place] [address] [place] [address] (Work Place) 12/24/2014 Mammogram, Screening [facility] (C entral Scheduling) [address] [place] [address] [place] [address] (Work Place) 04/21/2015 X-ray, Fifth Toe [facility] (Ce ntral Scheduling) [facility] [place] [address] (Work Place) 07/09/2015 Eeg [facility] (Ce ntral Scheduling) [address] [place] [address] [place] [address] (Work Place) Notes: nose surgery age 23 Results Lab Results Date Name Specimen Result Interpretation Description Value Range Status Address ? 04/20/2022 CBC W/ Normal White 7.88 3.5-11.0 Final [facility] Auto Diff Blood K/uL K/uL Hospita l Count Laboratory Department : [address] [place] [address] [facility] ? ? High Red 5.26 3.60-4.80 Final [facility] Blood M/uL M/uL Hospital Count Laboratory Department : [address] [place], [place] [address] r ? ? Normal Hemoglob 15.1 12.0-16.0 Final [facility] ood in g/dL g/dL [facility] [address] [facility] ? ? Normal Hematocr 45.5 % 36.0-48.0 % Final [facility] [address] [facility] ? ? Normal Mean 86.5 fL 79.0-98.0 fL Final [facility] Corpuscul Hospita l ar Volume Laborat ory Department : [address] [facility], [place] ? ? Normal Mean 28.7 pg 25.4-34.6 pg Final [facility] Corpuscul Hospita l ar Laboratory Hemoglobi Departm ent: n [address] [facility] [place] ? ? Normal Mean 33.2 30.0-36.0 Final [facility] Corpuscul g/dL g/dL Hospita l ar HGB Laboratory Conc Department : [address] [facility], [place] ? ? Normal Red Cell 13.5 % 11.5-14.5 % Final [facility] ion Width Laborat ory Department : [address] [facility] [place] ? ? Normal Platelet 362 K/uL 150-400 K/uL Final [facility] Laboratory Department : [address] [facility], [place] ? ? High Neutroph 69.3 % 35.0-66.0 % Final [facility] Percent Laborator y Auto Department : [address] [facility], [place] ? ? Normal Imm Gran 0.5 % 0.0-0.6 % Final [facility] Pct Auto Hospital Laboratory Department : [address] [place] [address], [place] r ? ? Low Lymphocy 16.0 % 25.0-45.0 % Final [facility] Percent Laborator y Auto Department : [address] [place] [address], [facility] ? ? Normal Monocyte 12.7 % 0.0-13.0 % Final [facility] Percent [facility] Auto Laboratory Department : [address] [facility], [place] ? ? Normal Eosinoph 0.6 % 0.0-8.0 % Final [facility] Percent Laborator y Auto Department : [address] [facility], [place] ? ? Normal Basophil 0.9 % 0.0-1.0 % Final [facility] s Percent [facility] l Auto Laboratory Department : [address] [facility], [place] ? ? Normal Neutroph 5.46 1.5-7.5 K/uL Final [facility] K/uL [facility] Absolute Laborato ry Auto Department : [address] [facility], [place] ? ? Normal Imm Gran 0.04 0.00-0.09 [facility] K/uL Hospital Laboratory Department : [address] [facility], [place] ? ? Normal Lymphocy 1.26 0.8-4.8 K/uL Final [facility] K/uL Hospital Absolute Laborato ry Auto Department : [address] [facility], [place] ? ? Normal Monocyte 1.00 0.4-1.3 K/uL Final [facility] K/uL [facility] Absolute Laborato ry Auto Department : [address] [facility], [place] ? ? Normal Eosinoph 0.05 0.0-0.8 K/uL Final [facility] K/uL [facility] Absolute Laborato ry Auto Department : [address] [facility] r ? ? Normal Basophil 0.07 0.0-0.6 K/uL Final [facility] K/uL Hospital Absolute Laborato ry Auto Department : [address] [place] [address] 04/20/2022 CMP, Normal Sodium 141 136-145 Final [facility] Serum or mmol/L mmol/L Hospital Plasma Laboratory Department : [address] [place] [address] ? ? Normal Potassiu 3.7 3.5-5.1 Final [facility] m mmol/L mmol/L Hospital Laboratory Department : [address] [place] [address] r ? ? Normal Chloride 102 98-107 Final [facility] mmol/L mmol/L Hospital Laboratory Department : [address] [place] [address] ? ? Normal Carbon 24.6 22-29 mmol/L Final [facility] Dioxide mmol/L Hospital Laboratory Department : [address] [place] [address] ? ? Normal Anion 18 10-20 mmol/L Final [facility] [place] mmol/L Hospital Laboratory Department : [address] [place] [address] r ? ? Normal Blood 11 mg/dL 6-20 mg/dL Final [facility] Nitrogen Laborato ry Department : [address] [place] [address] ? ? Normal Creatini 0.70 0.50-0.90 Final [facility] ne mg/dL mg/dL Hospital Laboratory Department : [address] [place] [address] ? ? ? Glomerul > 90 ? Final [facility] ar [facility] Filtratio [facility] ory n Rate Department : [address] [place] [address] r ? ? High Glucose 133 70-106 mg/dL Final [facility] mg/dL Hospital Laboratory Department : [address] [place] [address] r ? ? Normal Calcium 9.7 8.6-10.3 Final [facility] mg/dL mg/dL Hospital Laboratory Department : [address] [place] [address] ? ? Normal Bilirubi 0.5 0.2-1.2 Final [facility] n Total mg/dL mg/dL Hospital Laboratory Department : [address] [place] [address] r ? ? Normal Aspartat 14 U/L 5-32 U/L Final [facility] se Department : [address] [facility] r ? ? Normal Alanine 18 U/L 5-33 U/L Final [facility] Aminotran Hospita l sferase Laborator y Department : [address] [facility] ? ? Normal Total 7.4 g/dL 6.4-8.3 g/dL Final [facility] Protein [facility] Laboratory Department : [address] [facility] [place] ? ? Normal Albumin 4.5 g/dL 3.5-5.2 g/dL Final [facility] Level [facility] Laboratory Department : [address] [facility], [facility] ? ? Normal Globulin 2.9 2.0-3.5 Final [facility] g[facility]dL gm/dL Hospital Laboratory Department : [address] [facility], [facility] ? ? Normal Albumin 1.6 % 1.1-2.5 % Final [facility] Globulin Hospital Ratio Laboratory Department : [address] [facility] r ? ? Normal Alkaline 58 U/L 35-104 U/L Final [facility] Phosphata [facility] se Laboratory Department : [address] [place] [address] 04/20/2022 Ethanol, ? Ethanol < 10 ? Final [facility] Quantitat mg/dL [facility] eze, Laboratory Serum or Departme nt: Plasma [address] [place] [address] 11/11/2021 BMP, Low Sodium 135 136-145 Final [facility] Serum or mmol/L mmol/L [facility] Plasma Laboratory Department : [address] [place] [address] r ? ? Normal Potassiu 3.8 3.5-5.1 Final [facility] d m mmol/L mmol/L Hospital Laboratory Department : [address] [place] [address] r ? ? Low Chloride 96 98-107 Final [facility] mmol/L mmol/L Hospital Laboratory Department : [address] [place] [address] r ? ? Low Carbon 12.0 22-29 mmol/L Final [facility] Dioxide mmol/L Hospital Laboratory Department : [address] [place], [place] [address] r ? ? High Anion 31 10-20 mmol/L Final [facility] ood [place] mmol/L Hospital Laboratory Department : [address] [place] [address] r ? ? Normal Blood 8 mg/dL 6-20 mg/dL Final [facility] Nitrogen Laborato ry Department : [address] [facility] ? ? High Creatini 1.06 0.50-0.90 Final [facility] ood ne mg/dL mg/dL Hospital Laboratory Department : [address] [facility] ? ? ? Glomerul 62 ? Final [facility] Filtratio Laborat ory n Rate Department : [address] [facility] ? ? High Glucose 284 70-106 mg/dL Final [facility] mg/dL Hospital Laboratory Department : [address] [facility] ? ? Normal Calcium 9.9 8.6-10.3 Final [facility] mg/dL mg/dL Hospital Laboratory Department : [address] [facility] 11/11/2021 Ethanol, ? Ethanol < 10 ? Final [facility] Quantitat mg/dL Hospita eze, Laboratory Serum or Departme nt: Plasma [address] [facility] 11/11/2021 CBC W/ High White 12.10 3.5-11.0 Final [facility] Auto Diff Blood K/uL K/uL Hospita l Count Laboratory [facility] [address] [facility] ? ? High Red 5.16 3.60-4.80 Final [facility] Blood M/uL M/uL Hospital Count Laboratory Department : [address] [facility] ? ? Normal Hemoglob 14.8 12.0-16.0 Final [facility] in g/dL g/dL Hospital Laboratory Department : [address] [facility] ? ? Normal Hematocr 44.1 % 36.0-48.0 % Final [facility] Laboratory Department : [address] [facility] ? ? Normal Mean 85.5 fL 79.0-98.0 fL Final [facility] Corpuscul [facility] or Department : [address] [facility], [place] ? ? Normal Mean 28.7 pg 25.4-34.6 pg Final [facility] Corpuscul [facility] Laboratory Hemoglobi Departm ent: n [address] [facility], [place] ? ? Normal Mean 33.6 30.0-36.0 Final [facility] Corpuscul g/dL g/dL Hospita ar HGB Laboratory Conc Department : [address] [facility] ? ? Normal Red Cell 12.8 % 11.5-14.5 % Final [facility] Distribut Hospita ion Width [facility] or Department : [address] [facility], [place] r ? ? Normal Platelet 378 K/uL 150-400 K/uL Final [facility] Count [facility] Laboratory Department : [address] [facility], [place] ? ? Normal Neutroph 62.6 % 35.0-66.0 % Final [facility] Percent Laborator y Auto Department : [address] [facility] [place] ? ? High Imm Gran 0.7 % 0.0-0.6 % Final [facility] ood Pct Auto Hospital Laboratory Department : [address] [facility] [place] ? ? Low Lymphocy 22.8 % 25.0-45.0 % Final [facility] Percent Laborator y Auto Department : [address] [facility] [place] ? ? Normal Monocyte 12.5 % 0.0-13.0 % Final [facility] Percent Hospita l Auto Laboratory Department : [address] [facility] [place] ? ? Normal Eosinoph 0.6 % 0.0-8.0 % Final [facility] Percent Laborator y Auto Department : [address] [facility] [place] ? ? Normal Basophil 0.8 % 0.0-1.0 % Final [facility] o s Percent Hospita l Auto Laboratory Department : [address] [facility] [place] ? ? High Neutroph 7.58 1.5-7.5 K/uL Final [facility] K/ Hospital Absolute Laborato ry Auto Department : [address] [facility] [place] ? ? Normal Imm Gran 0.08 0.00-0.09 Final [facility] ood Abs Auto K/uL K/uL Hospital Laboratory Department : [address] [facility] [place] ? ? Normal Lymphocy 2.76 0.8-4.8 K/uL Final [facility] K/uL Hospital Absolute Laborato ry Auto Department : [address] [facility] [place] ? ? High Monocyte 1.51 0.4-1.3 K/uL Final [facility] K/uL [facility] Absolute Laborato ry Auto Department : [address] [facility] [place] ? ? Normal Eosinoph 0.07 0.0-0.8 K/uL Final [facility] K/[facility] Absolute Laborato ry Auto Department : [address] [facility], [place] ? ? Normal Basophil 0.10 0.0-0.6 K/uL Final [facility] K/uL Hospital Absolute Laborato ry Auto Department : [address] [facility], [place] 11/11/2021 SARS CoV GARNISHER ? Results ? ? ? [address] (COVID-19 Laborat ory ), , Department : sewage plant operator-PCR, [address], [place] ry Specimen 11/11/2021 BMP, Normal Sodium 141 136-145 Final [facility] Serum or mmol/L mmol/L [facility] Plasma Laboratory Department : [address] [facility], [place] ? ? Normal Potassiu 4.1 3.5-5.1 Final [facility] d m mmol/L mmol/L Hospital Laboratory Department : [address] [facility], [place] ? ? Normal Chloride 105 98-107 [facility] mmol/L mmol/L [facility] Laboratory Department : [address] [facility], [place] ? ? ? Carbon 24.7 22-29 mmol/L Final [facility] Dioxide mmol/L Hospital Laboratory Department : [address] [facility] [place] ? ? Normal Anion 15 10-20 mmol/L Final [facility] Gap mmol/L Hospital Laboratory Department : [address] [facility] [place] ? ? Normal Blood 9 mg/dL 6-20 mg/dL [facility] Urea [facility] Nitrogen Laborato ry Department : [address] [facility], [facility] ? ? Normal Creatini 0.78 0.50-0.90 Final [facility] ne mg/dL mg/dL Hospital Laboratory Department : [address] [facility] [place] ? ? ? Glomerul 89 ? Final [facility] Filtratio Laborat ory n Rate Department : [address] [facility], [facility] ? ? Normal Glucose 75 mg/dL 70-106 mg/dL Final [facility] Laboratory Department : [address] [facility] [place] ? ? Normal Calcium 9.3 8.6-10.3 Final [facility] d mg/dL mg/dL Hospital Laboratory Department : [address] [facility], [place] r 07/20/2021 Urinalysi ? Color yellow yellow Final [facility] s, Urine Hospital Complete Laborato ry Department : [address] [facility] [place] ? ? ABNORMAL Appearan cloudy clear Final [facility] ce Urine [facility] Laboratory Department : [address] [facility] [place] ? ? ? Specific 1.025 1.001-1.035 Final [facility] [place] [facility] Urine Laboratory Department : [address] [facility] [place] ? ? ABNORMAL Glucose trace negative Final [facility] Urine [facility]A Hospital Laboratory Department : [address] [facility], [place] ? ? ? Bilirubi negative negative Final [facility] n Urine [facility] Laboratory Department : [address] [facility] [place] ? ? ? Ketones negative negative Final [facility] U[facility] Laboratory Department : [address] [place] , [place] ? ? ABNORMAL Urine 3+ negative Final [facility] Hemoglobi [facility] Laboratory Department : [address] [facility], [place] ? ? ? pH Urine 6.0 5.0-8.0 Final [facility] Laboratory Department : [address] [facility] [place] ? ? ABNORMAL Protein 1+ mg/dL negative Final [facility] Urine mg/dL [facility] Laboratory Department : [address] [facility] [place] ? ? ? Urobilin 1.0 0.2-1.0 Final [facility] ogen mg/dL mg/dL [facility] Urine Laboratory Department : [address] [facility] [place] ? ? ABNORMAL Nitrite positive negative Final [facility] Laboratory Department : [address] [facility] [place] ? ? ABNORMAL Leukocyt 2+ negative Final [facility] Esterase Laborato ry Urine Department : [address] [facility] [place] ? ? ? RBC 0-2 ? Final [facility] Laboratory Department : [address] [facility] [place] ? ? ABNORMAL WBC tntc ? Final [facility] Laboratory Department : [address] [facility] [place] ? ? ABNORMAL Bacteria 3+ ? Final [facility] Urine [facility] Laboratory Department : [address] [facility] [place] 07/20/2021 Culture, UR ABNORMAL Urine colony ? Final [facility] Urine Culture count Hospital Laboratory Department : [address] [facility] [place] ? ? UR ABNORMAL Urine >100,000 ? Final [facility] Culture cfu/mL [facility] Laboratory Department : [address] [facility] [place] ? ? UR ? O:esccol escheric ? Final [facility] hia coli [facility] Laboratory Department : [address] [facility] [place] 07/20/2021 Bacterial UR Susceptibl Amikacin <=2 ? Tate walker [facility] e [facility] Laboratory Panel, Department : [place] [address] [place] ? ? UR Susceptibl Ampicill 8 ? Final [facility] Laboratory Department : [address] [facility] [place] ? ? UR Susceptibl Ampicill 4 ? Final Aidee gayle in/sulbac [facility] Laboratory Department : [address] [place] ? ? UR Susceptibl Cefazoli <=4 ? Final [facility] Laboratory Department : [address] [place] ? ? UR Susceptibl Cefepime <=1 ? Final [facility] Laboratory Department : [address] [facility] [place] ? ? UR Negative Extended neg ? [facility] Beta Laboratory Lactam Department : [address] [facility] [place] ? ? UR Susceptibl Ceftazid <=1 ? Final [facility] Laboratory Department : [address] [facility] [place] ? ? UR Susceptibl Ceftriax <=1 ? Final luis [facility] Laboratory Department : [address] [facility], [place] ? ? UR Susceptibl Ciproflo <=0.25 ? Final [facility] Laboratory Department : [address] [facility], [facility] ? ? UR Susceptibl Ertapene <=0.5 ? Final [facility] Laboratory Department : [address] [facility], [place] ? ? UR Susceptibl Gentamic <=1 ? Final [facility] Laboratory Department : [address] [facility], [facility] ? ? UR Susceptibl Imipenem <=0.25 ? Final [facility] [address] [facility] ? ? UR Susceptibl Levoflox <=0.12 ? Final luis [facility] Laboratory Department : 242 [facility] ? ? UR Susceptibl Nitrofur <=16 ? Final [facility] ? ? UR Susceptibl Tobramyc <=1 ? Final Aidee queen [facility] Laboratory Department : 242 [facility] ? ? UR Susceptibl Trimetho <=20 ? Final Aidee queen nalini prim/sulf Hospita l amethoxaz Laborat ory ole Department : 242 [facility], [facility] ? ? UR Susceptibl Piperaci <=4 ? Final Aidee queen nalini llin/tazo Hospita l bactam Laboratory Department : 242 [facility] Jose Ramonne r 04/02/2020 SARS CoV Normal Covid-19 not not detected [facility] 2 RNA detected [facility] (COVID-19 Lab: 24 2 ), , [facility], sewage plant operator-PCR, Jose Antonio Respirato ry Specimen 02/25/2016 CBC W/ Normal Wbc 4.9 3.5-11.0 [facility] ood Auto Diff 10*9/l 10*9/l Hospita l Lab: 242 [facility] ? ? Normal Rbc 4.68 3.60-4.80 [facility] 10*12/l 10*12/l [facility] ? ? Normal Hgb 13.8 12.0-16.0 [facility] g/dL g/dL [facility] Lab: [facility] ? ? Normal Hct 42.5 % 36-48 % [facility] Lab: [facility] ? ? Normal Mcv 90.8 fL 79-98 fL [facility] Lab: [facility] ? ? Normal Mch 29.5 pg 25.4-34.6 pg [facility] Lab: 242 [facility] ? ? Normal Mchc 32.5 30-36 g/dL [facility] g/dL [facility] Lab: [facility] ? ? Normal Rdw 13.7 % 11.5-14.5 % [facility] Lab: [address] [place] Jose Antonio Laboy ? ? Normal Plt 269 150-400 [facility] 10*9/l 10*9/l [facility] Lab: [facility] ? ? Normal Abs Neut 3.0 1.5-7.5 [facility] d Count Hospital Lab: 242 [facility] ? ? Normal Abs 1.1 0.8-4.8 [facility] Lymph Hospital Count Lab: 242 [facility] ? ? Normal Abs Hoke 0.6 0.4-1.3 [facility] d Count Hospital Lab: 242 [facility] ? ? Normal Abs Eo 0.1 0.0-0.8 [facility] Lab: 242 [facility] ? ? Normal Abs Baso 0.1 0.0-0.6 [facility] d Count Hospital Lab: 242 [facility] ? ? Normal Abs Imm 0.0 0.0-0.6 [facility] Gran CT [facility] Lab: [address] [place] Jose Antonio Laboy ? ? Normal Neut% 60.8 % 35-66 % [facility] Lab: [address] [place] Jose Antonio Laboy ? ? Normal Imm Gran 0.8 % 0-2.0 % [facility] d % Hospital Lab: [address] [place] Jose Antonio Laboy ? ? Low Lymph% 23.1 % 25-45 % [facility] Lab: [address] Jose Antonio Laboy ? ? Normal Hoke% 12.2 % 0-13 % [facility] Lab: [address] [place] [address] ? ? Normal Eo% 1.9 % 0-8 % [facility] Lab: [address] [place] [address] ? ? High Ba% 1.2 % 0-1 % [facility] Lab: [address] [place] [address] ? ? Normal RBC normal ? Final [facility] Lab: [address] [place] [address] 02/25/2016 HbA1C Normal % Hgb 5.2 % 4.0-5.7 % [facility] (Hemoglob a1C Hospita l in a1C), Lab: [facility] Blood [facility] 02/25/2016 TSH, Normal Tsh 0.752 0.27-4.2 Final [facility] ood Serum or uIU/mL uIU/mL Hospital Plasma Lab: [address] [place] [address] 02/25/2016 CMP, Normal Bun 9 mg/dL 6-20 mg/dL Final [facility] Serum or Hospital Plasma Lab: [address] [place] [address] ? ? Normal Na 138 136-145 Final [facility] mmol/L mmol/L [facility] Lab: [address] [place] [address] ? ? Normal K 3.9 3.5-5.1 [facility] mmol/L mmol/L [facility] Lab: [address] [place] [address] ? ? Normal Cl 98 98-107 [facility] mmol/L mmol/L [facility] Lab: [address] [place] [address] ? ? Normal Co2 28.2 22-29 mmol/L [facility] Lab: [address] [place] [address] ? ? Normal Glucose 88 mg/dL 70-106 mg/dL [facility] Lab: [address] [place] [address] ? ? Normal Creatini 0.70 0.50-0.90 Final [facility] ood ne mg/dL mg/dL Hospital Lab: [address] [place] [address] ? ? Normal Gfr > 60.00 ? [facility] Lab: [address] [place] [address] ? ? Normal Calcium 9.1 8.6-10.3 Final [facility] d mg/dL mg/dL Hospital Lab: [address] [place] [address] ? ? Normal Total 6.6 g/dL 6.4-8.3 g/dL Final [facility] Protein Hospital Lab: [address] [place] [address] ? ? Normal Albumin 4.1 g/dL 3.5-5.2 g/dL Final [facility] Lab: [address] [place] [address] ? ? Normal Globulin 2.5 2.0-3.5 Final [facility] d gm/dL gm/dL Hospital Lab: 242 [facility] ? ? Normal Alb/glob 1.6 % 1.1-2.5 % Final [facility] ood Ratio Hospital Lab: 242 [facility] ? ? Normal Bilirubi 0.7 0.2-1.2 Final [facility] n Tot mg/dL mg/dL Hospital Lab: 242 [facility] ? ? Normal Alk Phos 41 U/L 35-104 U/L Final [facility] Lab: 242 [facility] ? ? Normal AST(SGOT 13 U/L 5-32 U/L Final [facility] ) [facility] Lab: 242 [facility] ? ? Normal Alt 12 U/L 5-33 U/L [facility] (Sgpt) [facility] Lab: 242 [facility] ? ? Normal Anion 16.0 10-20 mmol/L Final [facility] Gap mmol/L Hospital Lab: [address] [place] [address] 02/25/2016 Bilirubin Normal Bilirubi < 0.20 0.0-0.3 Final [facility], n, Dir mg/dL mg/dL Hospita l Serum or Lab: 242 Plasma [facility] 02/25/2016 Lipid Normal Chol 156 <200 mg/dL Final [facility] Panel, mg/dL [facility] Serum Lab: [address] [place] [address] ? ? Normal Trig 55 mg/dL 30-150 mg/dL Final [facility] Lab: 242 [facility] ? ? Normal HDL Chol 56.0 40-60 mg/dL Final [facility] Direct mg/dL Hospital Lab: 242 [facility] ? ? Normal Risk 2.79 ? Final [facility] Hospital Lab: 242 [facility] ? ? Normal Low 89.0 0-100 mg/dL Final [facility] od Density mg/dL Hospital Lip Lab: [address] [place] [address] 03/28/2015 Urinalysi Normal Color yellow yellow Final [facility] Dipstick Lab: 242 [facility] ? ? Normal Appearan clear clear Final [facility] Lab: 242 [facility] [place] ? ? Normal Specific 1.015 1.001-1.035 Final [facility] Gravit [facility] Lab: 242 [facility] [place] ? ? High Urine 2+ neg Final [facility] Glucose [facility] Lab: 242 [facility] [place] ? ? Normal Urine negative neg Final [facility] Bilirubin Hospita l Lab: 242 [facility] [place] ? ? Normal Urine negative neg Final [facility] Ketone [facility] Lab: 242 [facility] [place] ? ? Normal Urine negative neg Final [facility] HGB [facility] Lab: 242 [facility] ? ? Normal Urine pH 5.5 5.0-8.0 Final [facility] Lab: 242 [facility] ? ? Normal Urine negative neg mg/dL Final [facility] Protein mg/dL Hospital Lab: 242 [facility] ? ? Normal Urobilin 0.2 0.2-1.0 Final [facility] Lab: 242 [facility] [place] ? ? Normal Nitrite negative neg Final [facility] Lab: 242 [facility] ? ? Normal Leukocyt negative neg [facility] Lab: 242 [facility] 03/28/2015 Culture, URIN ? Urine ? ? [facility] CLAUDIA Lab: 242 [facility] 12/24/2014 TSH, Normal Tsh 0.729 0.27-4.2 Final [facility] ood Serum or uIU/mL uIU/mL Hospital Plasma Lab: 242 [facility] 12/24/2014 Lipid Normal Chol 165 <200 mg/dL Final [facility] Panel, mg/dL Hospital Serum Lab: 242 [facility] ? ? Normal Trig 77 mg/dL 30-150 mg/dL Final [facility] Lab: 242 [facility] ? ? Normal HDL Chol 59.0 40-60 mg/dL Final [facility] Direct mg/dL Hospital Lab: 242 [facility] ? ? Normal Risk 2.80 ? Final [facility] Lab: 242 [facility] [place] ? ? Normal Low 90.6 84-165 mg/dL Final [facility] ood Density mg/dL Hospital Lip Lab: 242 [facility] 12/24/2014 HIV 1+2 Normal HIV 1+2 nonreact ? Final [facility] Ab + [facility], Lab: 242 [place] S t, ezenalini [place] Immunoass ay, Serum 12/24/2014 Hepatitis Normal Hep C Ab nonreact nonreactive Final [facility] C Virus Screen [facility] Ab, Serum Lab: [address] , [place] 12/24/2014 CT + NG Normal Chlamydi negative negative Final [facility] DNA, a (ISA) Hospital Qual, Lab: 242 PCR, Travon Laboy, Unspecifi [place] ed Specimen ? ? Normal N.gono negative negative Final [facility] (Naat) [facility] Lab: [address] Jose Antonio Laboy 12/24/2014 RPR Normal Rpr neg negative Final [facility] ood ([facility] Plasma Lab: 242 [place]), Travon Laboy , Serum [place] 12/24/2014 Pap, LB + ? Pap ? ? Final [facility] Reflex hr Smear Hospita HPV Lab: [address] Jose Antonio Laboy 12/19/2014 CBC W/ Normal Wbc 7.5 3.5-11.0 Final [facility] ood Auto Diff 10*9/l 10*9/l Hospita l Lab: [address] Jose Ramon Laboyner ? ? Normal Rbc 4.67 3.60-4.80 [facility] 10*12/l 10*12/l [facility] Lab: [address] Jose Antonio Laboy ? ? Normal Hgb 13.6 12.0-16.0 [facility] g/dL g/dL [facility] Lab: [facility] ? ? Normal Hct 41.3 % 36-48 % [facility] Lab: 242 [facility] ? ? Normal Mcv 88.4 fL 79-98 fL [facility] Lab: [address] Jose Antonio Laboy ? ? Normal Mch 29.1 pg 25.4-34.6 pg Final [facility] Lab: 242 [facility] ? ? Normal Mchc 32.9 30-36 g/dL Final [facility] d g/dL [facility] Lab: 242 [facility] ? ? Normal Rdw 13.5 % 11.5-14.5 % Final [facility] Lab: 242 [facility] Ram[facility] ? ? Normal Plt 306 150-400 Final [facility] 10*9/l 10*9/l Hospital Lab: [address] [place] ? ? Normal Abs Neut 4.4 1.5-7.5 [facility] d Count Hospital Lab: [address] [place] ? ? Normal Abs 1.9 0.8-4.8 [facility] Hospital Count Lab: [address], [place] ? ? Normal Abs Hoke 0.9 0.4-1.3 [facility] Lab: [address] [place] ? ? Normal Abs Eo 0.1 0.0-0.8 [facility] Lab: [address], [place] ? ? Normal Abs Baso 0.1 0.0-0.6 [facility] Lab: [address] [place] ? ? Normal Abs Imm 0.0 0.0-0.6 [facility] Lab: [address], [place] ? ? Normal Neut% 59.6 % 35-66 % [facility] Lab: [address] [place] ? ? Normal Imm Gran 0.5 % 0-2.0 % [facility] Lab: [address] [place] ? ? Normal Lymph% 25.9 % 25-45 % [facility] Lab: [address] [place] ? ? Normal Hoke% 11.4 % 0-13 % [facility] Lab: [address] [place] ? ? Normal Eo% 1.5 % 0-8 % [facility] Lab: [address] [place] ? ? High Ba% 1.1 % 0-1 % [facility] Lab: [address] [place] ? ? Normal RBC normal ? Final [facility] Lab: [address] [place] 12/19/2014 Urinalysi Normal Color yellow yellow Final [facility] Dipstick Lab: [address], [place] ? ? Normal Appearan cloudy clear Final [facility] Lab: [address], [place] ? ? Normal Specific 1.010 1.001-1.035 [facility] Lab: [address], [place] ? ? Normal Urine negative neg Final [facility] Glucose [facility] Lab: [address], [place] ? ? Normal Urine negative neg Final [facility] Bilirubin Hospita l Lab: [address], [place] ? ? Normal Urine negative neg Final [facility] Lab: 242 [facility] ? ? Normal Urine negative neg Final [facility] Lab: 242 [facility] ? ? Normal Urine pH 6.0 5.0-8.0 [facility] Lab: 242 [facility] ? ? Normal Urine negative neg mg/dL [facility] od Protein mg/dL Hospital Lab: 242 [facility] ? ? Normal Urobilin 0.2 0.2-1.0 [facility] Lab: 242 [facility] ? ? Normal Nitrite negative neg [facility] Lab: 242 [facility] ? ? High Leukocyt 1+ neg Final [facility] Lab: 242 [facility] 12/19/2014 Leukocyte ? Results ? ? [facility] Esterase, Hospita l Quant, Lab: 242 Urine [facility] 12/19/2014 Urinalysi High Micro ? ? Final [facility] Complete Lab: 242 [facility] 12/19/2014 CMP, Normal Bun 9 mg/dL 6-20 mg/dL Final [facility] Serum or Hospital Plasma Lab: 242 [facility] ? ? Normal Na 140 136-145 [facility] mmol/L mmol/L [facility] Lab: [address] [place] [address] ? ? Normal K 5.0 3.5-5.1 [facility] mmol/L mmol/L [facility] Lab: [address] [place] [address] ? ? Normal Cl 100 98-107 [facility] mmol/L mmol/L Hospital Lab: 242 [facility] ? ? High Co2 30.1 22-29 mmol/L [facility] Lab: 242 [facility] ? ? Normal Glucose 82 mg/dL 70-106 mg/dL [facility] Lab: 242 [facility] ? ? Normal Creatini 0.79 0.50-0.90 [facility] mg[facility]dL [facility] Lab: 242 [facility] ? ? Normal Gfr > 60.00 ? [facility] Lab: 242 [facility] ? ? Normal Calcium 10.1 8.6-10.3 [facility] mg/dL mg/dL Hospital Lab: [address] [place] ? ? Normal Total 6.7 g/dL 6.4-8.3 g/dL Final [facility] Protein [facility] Lab: [address] [place] ? ? Normal Albumin 4.2 g/dL 3.5-5.2 g/dL Final [facility] Lab: [address] [place] ? ? Normal Bilirubi 0.4 0.2-1.2 Final [facility] n Tot mg/dL mg/dL Hospital Lab: [address] [place] ? ? Normal Alk Phos 45 U/L 35-104 U/L Final [facility] Lab: [address] [place] ? ? Normal AST(SGOT 14 U/L 5-32 U/L Final [facility] od ) [facility] Lab: [address] [place] ? ? Normal Alt 13 U/L 5-33 U/L [facility] (Sgpt) [facility] Lab: 242 [facility] ? ? Normal Anion 15.0 10-20 mmol/L Final [facility] ood Gap mmol/L [facility] Lab: [address] [place] 12/19/2014 Culture, URIN Normal Urine ? ? Final [facility] ood Urine E Culture [facility] Lab: 242 OM [facility] [place] ? ? URIN Susceptibl Urine ? ? Final [facility] E e Culture [facility] Lab: [address] [place] 09/19/2014 Urinalysi Normal Color light yellow Final [facility] s, yellow [facility] Dipstick Lab: [address] [place] ? ? Normal Appearan clear clear Final [facility] ce [facility] Lab: [address] [place] ? ? Normal Specific 1.003 1.001-1.035 Final [facility] Gravit [facility] Lab: [address], [place] ? ? Normal Urine negative neg Final [facility] Glucose [facility] Lab: [address] [place] ? ? Normal Urine negative neg Final [facility] Bilirubin Hospita l Lab: [address] [place] ? ? Normal Urine negative neg Final [facility] Ketone [facility] Lab: 242 [facility] [place] ? ? High Urine trace-ly neg Final [facility] HGB sed Hospital Lab: [address], [place] ? ? Normal Urine pH 6.5 5.0-8.0 Final [facility] Lab: [address], [place] ? ? Normal Urine negative neg mg/dL Final [facility] Protein mg/dL Hospital Lab: [address], [place] ? ? Normal Urobilin 0.2 0.2-1.0 Final [facility] Lab: [address], [place] ? ? Normal Nitrite negative neg Final [facility] Lab: [address], [place] ? ? Normal Leukocyt negative neg Final [facility] e [facility] Lab: [address], [place] 09/19/2014 Leukocyte ? Results ? ? [facility] Esterase, Hospita l Quant, Lab: [address], [place] 09/19/2014 Urinalysi High Micro ? ? Final [facility] Complete Lab: [address], [place] 09/19/2014 Drug Normal Ds negative ? Final [facility] ood Screen, [facility] Urine a[facility]us Lab: [address], [place] ? ? Normal Ds negative ? Final [facility] Barbituat Hospita l es Lab: [address], [place] ? ? Normal Ds negative ? Final [facility] Benzodiaz Hospita l epi Lab: [address], [place] ? ? Normal Ds negative ? Final [facility] Cannabino Hospita l id Lab: [address], [place] ? ? Normal Ds negative ? Final [facility] Lab: [address], [place] ? ? Normal Ds negative ? Final [facility] Methadone Hospita l Lab: [address], [place] ? ? Normal Ds negative ? Final [facility] Methaqual Hospita l one Lab: [address], [place] ? ? Normal Ds negative ? Final [facility] Opiates Hospital Lab: [address], [place] ? ? Normal Ds negative ? Final [facility] Phencycli Hospita l din Lab: [address], [place] ? ? Normal Ds negative ? Final [facility] Propoxphe Hospita l ne Lab: [address], [place] 04/10/2014 CBC W/ Normal Wbc 5.8 3.5-11.0 Final [facility] ood Auto Diff 10*9/l 10*9/l Hospita l Lab: [address], [place] ? ? High Rbc 4.85 3.60-4.80 Final [facility] 10*12/l 10*12/l Hospital Lab: [facility] ? ? Normal Hgb 13.9 12.0-16.0 [facility] g/dL g/dL Hospital Lab: 242 [facility] ? ? Normal Hct 42.4 % 36-48 % [facility] Lab: 242 [facility] ? ? Normal Mcv 87.4 fL 79-98 fL [facility] Lab: 242 [facility] ? ? Normal Mch 28.7 pg 25.4-34.6 pg Final [facility] Lab: 242 [facility] ? ? Normal Mchc 32.8 30-36 g/dL [facility] g/dL [facility] Lab: 242 [facility] ? ? Normal Rdw 13.4 % 11.5-14.5 % [facility] Lab: 242 [facility] ? ? Normal Plt 292 150-400 [facility] 10*9/l 10*9/l Hospital Lab: 242 [facility] ? ? Normal Abs Neut 3.6 1.5-7.5 [facility] d Count Hospital Lab: 242 [facility] ? ? Normal Abs 1.5 0.8-4.8 [facility] Hospital Count Lab: [facility] ? ? Normal Abs Hoke 0.6 0.4-1.3 [facility] d Count Hospital Lab: 242 [facility] ? ? Normal Abs Eo 0.1 0.0-0.8 [facility] Lab: 242 [facility] ? ? Normal Abs Baso 0.1 0.0-0.6 [facility] d Count Hospital Lab: [facility] ? ? Normal Abs Imm 0.0 0.0-0.6 [facility] Hospital Lab: 242 [facility] ? ? Normal Neut% 61.0 % 35-66 % [facility] Lab: [facility] ? ? Normal Imm Gran 0.5 % 0-2.0 % [facility] d % Hospital Lab: 242 [facility] ? ? Normal Lymph% 26.1 % 25-45 % [facility] Lab: 242 [facility] ? ? Normal Hoke% 9.9 % 0-13 % [facility] Lab: 242 [facility] ? ? Normal Eo% 1.5 % 0-8 % [facility] Lab: 242 [facility] ? ? Normal Ba% 1.0 % 0-1 % [facility] Lab: 242 [facility] ? ? Normal RBC normal ? Final [facility] Lab: 242 [facility] 04/10/2014 Thyroid Normal Tsh 0.42 0.27-4.2 Final [facility] Stimulati uIU/mL uIU/mL Hospita l ng Lab: 242 Hormone [facility], (TSH) [place] 04/10/2014 Electroly Normal Na 140 136-145 Final [facility] te Panel, mmol/L mmol/L Hospita l Serum Lab: 242 [facility] ? ? Normal K 4.1 3.5-5.1 [facility] mmol/L mmol/L [facility] Lab: 242 [facility] ? ? Normal Cl 105 98-107 Final [facility] mmol/L mmol/L [facility] Lab: 242 [facility] ? ? High Co2 30.6 22-29 mmol/L Final [facility] ood mmol/L [facility] Lab: 242 [facility] ? ? Low Anion 9.0 10-20 mmol/L Final [facility] ood Gap mmol/L [facility] Lab: 242 [facility] 04/10/2014 Bun Normal Bun 8 mg/dL 6-20 mg/dL Final [facility] Urea Lab: 242 Nitrogen) [place] S t, , Serum [place] or Plasma 04/10/2014 Glucose, Normal Fasting 94 mg/dL 70-106 mg/dL F inal [facility] Fasting, Sugar [facility] Serum/butch Lab: 24 2 sma [facility] 04/10/2014 Creatinin Normal Creatini 0.79 0.50-0.90 [facility] e, Serum ne mg/dL mg/dL Hospital or Plasma Lab: 24 2 [facility] ? ? Normal Gfr > 60.00 ? [facility] Lab: 242 [facility] 04/10/2014 Hepatic Normal Total 6.8 g/dL 6.4-8.3 g/dL Diamond l [facility] Function Protein Hospita l Panel Lab: 242 [facility] ? ? Normal Albumin 3.9 g/dL 3.5-5.2 g/dL [facility] Lab: 242 [facility] ? ? Normal Bilirubi 0.4 0.2-1.2 Final [facility] n Tot mg/dL mg/dL Hospital Lab: 242 [facility] ? ? Normal Bilirubi < 0.20 0.0-0.3 Final [facility] n, Dir mg/dL mg/dL Hospital Lab: 242 [place] [facility] Hospital ? ? Normal Alk Phos 39 U/L 35-104 U/L [facility] Lab: 242 [facility] ? ? Normal AST(SGOT 10 U/L 5-32 U/L [facility] od ) [facility] Lab: 242 [facility] ? ? Normal Alt 10 U/L 5-33 U/L [facility] (Sgpt) [facility] Lab: 242 [facility] 04/10/2014 Lipid Normal Chol 162 <200 mg/dL [facility] Panel, mg/dL [facility] Serum Lab: 242 [facility] ? ? Normal Trig 63 mg/dL 30-150 mg/dL Final [facility] Lab: 242 [facility] ? ? Normal HDL Chol 54.3 40-60 mg/dL Final [facility] Direct mg/dL Hospital Lab: 242 [facility] ? ? Normal Risk 2.98 ? Final [facility] Lab: 242 [facility] ? ? Normal Low 95.1 84-165 [facility] Lip Lab: 242 [facility] 04/10/2014 HbA1C Normal % Hgb 5.5 % 4.0-6.2 % [facility] (Hemoglob a1C Hospita l in a1C), Lab: 242 Blood [facility] 04/09/2014 Cbc Normal Wbc 6.8 3.5-11.0 [facility] ood 10*9/l 10*9/l Hospital Lab: 242 [facility] ? ? Normal Rbc 4.77 3.60-4.80 [facility] 10*12/l 10*12/l [facility] Lab: 242 [facility] ? ? Normal Hgb 13.9 12.0-16.0 [facility] g/dL g/dL Hospital Lab: 242 [facility] ? ? Normal Hct 41.9 % 36-48 % Final [facility] Lab: [address] [place] [address] [place] ? ? Normal Mcv 87.8 fL 79-98 fL Final [facility] Lab: [address] [place] [address] ? ? Normal Mch 29.1 pg 25.4-34.6 pg Final [facility] Lab: [address] [place] [address] ? ? Normal Mchc 33.2 30-36 g/dL [facility] d g/dL Hospital Lab: [address] [place] [address] ? ? Normal Rdw 13.4 % 11.5-14.5 % [facility] Lab: 242 [facility] ? ? Normal Plt 301 150-400 Final [facility] 10*9/l 10*9/l [facility] Lab: [address] [place] [address] ? ? Normal Abs Neut 3.9 1.5-7.5 [facility] Count [facility] Lab: [address] [place] [address] 04/09/2014 beta-HCG, Normal Hcg < 0.5 0-5 mIU/mL Final [facility] Quantitat mIU/mL Hospita l eze, Lab: 242 Serum or [facility] , Plasma [place] 02/13/2014 Pathology ? Surgical ? ? Final [facility] Surgical Lab: [address] [place] [address] 01/28/2014 Thyroid Normal Tsh 0.94 0.27-4.2 [facility] Stimulati uIU/mL uIU/mL Hospita l ng Lab: 242 Hormone [facility], (TSH) [place] 01/28/2014 T4 Free Normal Free T4 1.08 0.9-1.7 [facility] NG/dL NG/dL Hospital Lab: [address] [place] [address] 01/28/2014 T3 Free Normal Free T3 3.0 2.3-4.2 [facility] pg/mL pg/mL Hospital Lab: [address] [place] [address] 01/28/2014 T3, Normal Reverse 16 NG/dL 8-25 NG/dL [facility] Reverse T3 Hospital Lab: [address] [place] [address] 07/10/2013 Thyroglob Normal Thyroglo 16.0 2.0-35.0 [facility] ulin b Level NG/mL NG/mL Hospital Level Lab: [address] [place] [address] 07/10/2013 Thyroglob Normal Thyroglo <20 <20 IU/mL Diamond l [facility] ulshakir b Ab IU/mL [facility] Antibody Lab: [address] [place], [place] [address]Jose [place] 07/02/2013 CBC Normal Wbc 7.6 3.5-11.0 Final [facility] ood W/diff 10*9/l 10*9/l Hospital Lab: [address] [place], [place] [address]Jose [place] ? ? High Rbc 4.91 3.60-4.80 [facility] 10*12/l 10*12/l [facility] Lab: [address] [place], [place] [address]Jose [place] ? ? Normal Hgb 13.6 12.0-16.0 [facility] g/dL g/dL [facility] Lab: [address] [place], [place] [address]Jose RamonBrady ? ? Normal Hct 41.5 % 36-48 % [facility] Lab: [address] [place] [address] [place] ? ? Normal Mcv 84.5 fL 79-98 fL [facility] Lab: [address] [place] [address] [place] ? ? Normal Mch 27.7 pg 25.4-34.6 pg [facility] Lab: [address] [place] [address] [place] ? ? Normal Mchc 32.8 30-36 g/dL [facility] d g/dL [facility] Lab: [address] [place], [place] [address]Jose [place] ? ? Normal Rdw 13.6 % 11.5-14.5 % [facility] od [facility] Lab: [address] [place], [place] [address]Jose RamonBrady ? ? Normal Plt 281 150-400 [facility] 10*9/l 10*9/l [facility] Lab: [address] [place], [place] [address]Jose [place] ? ? Normal Abs Neut 5.5 1.5-7.5 [facility] d Count [facility] Lab: [address] [place], [place] [address]Jose [place] ? ? Normal Abs 1.4 0.8-4.8 Final [facility] Count Lab: [address] [place], [place] [address]Jose RamonBrady ? ? Normal Abs Hoke 0.7 0.4-1.3 [facility] d Count [facility] Lab: [address] [place], [place] [address]Jose RamonBrady ? ? Normal Abs Eo 0.1 0.0-0.8 Final [facility] Count [facility] Lab: [address] [place], [place] [address]Jose RamonBrady ? ? Normal Abs Baso 0.0 0.0-0.6 [facility] d Count [facility] Lab: [address] [place], [place] [address]Jose [place] ? ? Normal Abs Imm 0.0 0.0-0.6 [facility] Gran CT [facility] ? ? High Neut% 72.4 % 35-66 % [facility] Lab: 242 [facility] ? ? Normal Imm Gran 0.1 % 0-2.0 % [facility] d % Hospital Lab: 242 [facility] ? ? Low Lymph% 17.8 % 25-45 % [facility] Lab: 242 [facility] ? ? Normal Hoke% 8.5 % 0-13 % [facility] Lab: 242 [facility] ? ? Normal Eo% 0.7 % 0-8 % [facility] Lab: 242 [facility] ? ? Normal Ba% 0.5 % 0-1 % [facility] Lab: 242 [facility] ? ? Normal RBC normal ? [facility] Lab: 242 [facility] 07/02/2013 Troponin Normal Troponin 0.00 0.0-0.03 [facility] I I NG/mL NG/mL Hospital Lab: 242 [facility] 07/02/2013 Thyroid Low Tsh 0.02 0.34-5.6 [facility] Stimulati uIU/mL uIU/mL Hospita l ng Lab: 242 Hormone [facility], (TSH) [place] 07/02/2013 Comprehen Normal Bun 8 mg/dL 7-25 mg/dL [facility] Metabolic Lab: 24 2 Panel [facility] ? ? Normal Na 140 136-145 [facility] mmol/L mmol/L Hospital Lab: 242 [facility] ? ? Normal K 3.60 3.5-5.1 [facility] mmol/L mmol/L Hospital Lab: 242 [facility] ? ? Normal Cl 104 98-107 [facility] mmol/L mmol/L Hospital Lab: 242 [facility] ? ? Normal Co2 30.0 21-31 mmol/L Final [facility] ood mmol/L Hospital Lab: 242 [facility] ? ? Normal Glucose 105 70-105 mg/dL [facility] mg/dL Hospital Lab: 242 [facility] ? ? Normal Creatini 0.58 0.5-1.2 [facility] ne mg/dL mg/dL Hospital Lab: 242 [facility] ? ? Normal Gfr > 60.00 ? Final [facility] Lab: [address] [place] [address] ? ? Normal Calcium 9.5 8.6-10.3 [facility]dL [facility] Lab: [address] [place] [address] ? ? Normal Total 6.6 g/dL 6.4-8.3 g/dL Final [facility] Protein [facility] Lab: [address] [place] [address] ? ? Normal Albumin 4.1 g/dL 3.7-5.3 g/dL Final [facility] Lab: [address] [place] [address] ? ? High Bilirubi 1.1 0.2-1.0 Final [facility] d n Tot mg/dL mg/dL Hospital Lab: [address] [place] [address] ? ? Normal Alk Phos 44 IU/L 34-104 IU/L Final [facility] Lab: [address] [place] [address] ? ? Normal AST(SGOT 13 IU/L 13-39 IU/L Final [facility] ) [facility] Lab: [address] [place] [address] ? ? Normal Alt 23 IU/L 7-52 IU/L [facility] (Sgpt) [facility] Lab: [address] [place] [address] ? ? Normal Anion 9.6 5-15 mmol/L [facility] od [place] mmol/L Hospital Lab: [address] [place] [address] 07/02/2013 Bilirubin Normal Bilirubi 0.12 0.03-0.18 Diamond [facility] , Direct n, Dir mg/dL mg/dL Hospital Lab: [address] [place] [address] 07/02/2013 T3 Total Normal Total T3 128.73 87-178 NG/dL nal Lloyd NG/dL Hospital Lab: [address] [place] [address] 07/02/2013 T4 Free Normal Free T4 1.43 0.58-1.64 [facility] NG/dL NG/dL Hospital Lab: [address] [place] [address] 06/07/2013 Esr Normal Sed Rate 5 mm/HR 0-20 mm/HR [facility] Lab: [address] [place] [address] 06/07/2013 TSH W/ Low TSH Rflx 0.02 0.34-5.60 [facility] Reflex to FT4 uIU/mL uIU/mL Hospita l FT4 Lab: [address] [place] [address] 06/07/2013 T4 Free Normal Free T4 1.58 0.58-1.64 Final [facility] NG/dL NG/dL [facility] Lab: 242 [facility] 06/07/2013 Comprehen Normal Bun 8 mg/dL 7-25 mg/dL Final [facility] Metabolic Lab: 24 2 Panel [facility] ? ? Normal Na 142 136-145 [facility] mmol/L mmol/L [facility] Lab: 242 [facility] ? ? Normal K 3.50 3.5-5.1 [facility] mmol/L mmol/L [facility] Lab: 242 [facility] ? ? High Cl 108 98-107 [facility] mmol/L mmol/L [facility] Lab: 242 [facility] ? ? Normal Co2 27.0 21-31 [facility]L [facility] Lab: 242 [facility] ? ? Normal Glucose 87 mg/dL 70-105 mg/dL [facility] Lab: [address] [place] [address] ? ? Normal Creatini 0.56 0.5-1.2 [facility] ne mg/dL mg/dL Hospital Lab: 242 [facility] ? ? Normal Gfr > 60.00 ? [facility] Lab: 242 [facility] ? ? Normal Calcium 9.7 8.6-10.3 [facility] mg/dL mg/dL Hospital Lab: [address] [place] [address] ? ? Normal Total 6.6 g/dL 6.4-8.3 g/dL [facility] Protein [facility] Lab: 242 [facility] ? ? Normal Albumin 4.1 g/dL 3.7-5.3 g/dL [facility] Lab: 242 [facility] ? ? Normal Bilirubi 0.5 0.2-1.0 [facility] n Tot mg/dL mg/dL Hospital Lab: 242 [facility] ? ? Normal Alk Phos 37 IU/L 34-104 IU/L [facility] Lab: 242 [facility] ? ? Low AST(SGOT 10 IU/L 13-39 IU/L [facility] ) Hospital Lab: [address] [place] [address] ? ? Normal Alt 18 IU/L 7-52 IU/L [facility] (Sgpt) Hospital Lab: 242 [facility] ? ? Normal Anion 10.5 5-15 mmol/L [facility] [place] mmol/L Hospital Lab: 242 [facility] 06/07/2013 Bilirubin Normal Bilirubi 0.10 0.03-0.18 Diamond l [facility] Pascual n, Dir mg/dL mg/dL Hospital Lab: 242 [facility] 06/07/2013 Creatine Low Ck 22 IU/L 30-223 IU/L Final [facility] ([place]), Lab: 242 Total [facility] 12/24/2012 Urinalysi Normal Color yellow yellow Final [facility] Lab: 242 [facility] ? ? Normal Appearan clear clear Final [facility] Lab: 242 [facility] ? ? Normal Specific 1.010 1.001-1.035 Final [facility] Lab: 242 [facility] ? ? Normal Urine negative neg Final [facility] Glucose [facility] Lab: 242 [facility] ? ? Normal Urine negative neg Final [facility] Bilirubin Hospita l Lab: 242 [facility] ? ? Normal Urine negative neg Final [facility] Ketone [facility] Lab: 242 [facility] ? ? High Urine trace-in neg Final [facility] Lab: 242 [facility] ? ? Normal Urine pH 6.0 5.0-8.0 [facility] Lab: 242 [facility] ? ? Normal Urine negative neg mg/dL [facility] Protein mg/dL Hospital Lab: 242 [facility] ? ? Normal Urobilin 0.2 0.2-1.0 [facility] Lab: 242 [facility] ? ? Normal Nitrite negative neg [facility] Lab: 242 [facility] ? ? Normal Leukocyt negative neg Final [facility] e Jo Ann [facility] Lab: 242 [facility] 12/24/2012 Leukocyte ? Results ? ? [facility] Esterase, Hospita l Urne Lab: 242 [facility] 12/24/2012 Urinalysi High Micro ? ? Final [facility] Complete Lab: 242 [facility] 12/24/2012 Wet Prep VAGI Normal Wet Prep ? ? Final [facility] Lab: 242 [facility] 12/24/2012 Aretha Prep, VAGI Normal Aretha Prep aretha prep ? Final [facility] Tissue NA result: Hospital no Lab: [address] , elements [place] seen 12/24/2012 chlamydia CERV ? Chlamydi negative ? Final [facility] / DNA IX a Probe [facility] Probe Lab: [address] mation [place] ? ? CERV ? GC negative ? Final [facility] IX Genprobe Hospital Lab: [address], [place] 12/24/2012 Culture, URIN Normal Urine ? ? Final [facility] ood Urine E Culture Hospital CLAUDIA Lab: [address], CATC [place] H ? Urinalysi ? Leukocyt Moderate ? ? [facility]erman [facility], es Primary Dipstick Care: [address], [place] ? ? ? Nitrite Pos ? ? [facility] Primary Care: [address], [place] ? ? ? Urobilin Normal ? ? [facility] ogen Primary Care: [address], [place] ? ? ? Protein Trace ? ? [facility] Care: [address], [place] ? ? ? Ph 6.0 ? ? [facility] Care: [address], [place] ? ? ? Blood Non-Hemo ? ? [facility] lyzed Primary Care: [address], [place] ? ? ? Specific 1.015 ? ? [facility] [place] Primary Care: [address], [place] ? ? ? Ketone Neg ? ? [facility] Primary Care: [address], [place] ? ? ? Bilirubi Neg ? ? [facility] Primary Care: [address], [place] ? ? ? Glucose Neg ? ? [facility] Primary Care: [address], [place] Past Encounters None recorded. Social History Tobacco Smoking Status Former Smoker Notes: smokes 3 -4 times daily with a vaporizer. 3-4 times . uses it when stressed. goes to the gym, cig arettes. Vaccine List Vaccine Type influenza, unspecified formulation 04/23/2010 04/12/2014 06/02/2015 05/26/2016 Tdap 01/01/2015?0.5 mL Notes: flu vax fall 2012 Plan of Care Reminders Provider Appointments None recorded. ? ? Lab None recorded. ? ? Referral None recorded. ? ? Procedures None recorded. ? ? Surgeries None recorded. ? ? Imaging None recorded. ? ? Vitals 07/09/2015 01:20PM TUG-Ojball-73 Min Weight Blood Pressure 135 lbs 4 oz 84/60 mm[Hg] 04/21/2015 02:00PM XSB-Renhis-82 Min Height Weight BMI Blood Pressure 65 in 134 lbs 4 oz 22.3 kg/m2 110/70 mm[Hg] 12/24/2014 10:00AM FFK-Tpqtadtz-52 Min Height Weight BMI Blood Pressure 65 in 132 lbs 8 oz 22 kg/m2 90/60 mm[Hg] 12/19/2014 10:30AM PCP-Office Visit-30 Min Height Weight BMI Blood Pressure 65 in 137 lbs 8 oz 22.9 kg/m2 100/70 mm[Hg] 05/31/2014 01:45PM FZK-Xnottz-19 Min Weight Blood Pressure 128 lbs 102/66 mm[Hg] 03/28/2014 02:00PM UZQY-Fap-Ke-15 Min Height Weight BMI 65 in 128 lbs 21.3 kg/m2 01/29/2014 10:15AM HHCW-Consult Height Weight BMI Blood Pressure 65 in 128 lbs 21.3 kg/m2 116/66 mm[Hg] 12/10/2013 03:00PM KUHT-Shooil-Sf-30 Min Weight Blood Pressure 133 lbs 128/78 mm[Hg] 10/12/2013 03:30PM PC-Same Day-30 Min Height Weight BMI Blood Pressure 65 in 133 lbs 0.2 oz 22.1 kg/m2 110/72 mm[Hg] 10/09/2013 02:15PM PC-Office Visit-15 Min Blood Pressure 110/60 mm[Hg] 07/10/2013 02:00PM PC-Office Visit-30 Min Height Weight BMI Blood Pressure 65 in 132 lbs 22 kg/m2 138/68 mm[Hg] 06/04/2013 11:30AM PC-New Patient OV-30 Min Height Weight BMI Blood Pressure 65 in 132 lbs 22 kg/m2 92/64 mm[Hg] 07/27/2012 02:15PM HHCW-New Patient OV-30 Min Height Weight BMI Blood Pressure 65 in 135 lbs 22.5 kg/m2 128/80 mm[Hg]
[2022-04-28] MEDS: cloNIDine HCL 0.1 MG TABLET PO (16:08)
--- NOTE | 2022-05-18 10:20 | P.PNPSO_ITS ---
Subjective Subjective Date of Service: 05/18/22 Reason For Visit: Major depressive disorder,recurrent episode with Interim History: Patient called public relations writer and left a message saying that medication she had been started on was causing night sweats and double vision. Commercial Account Officer returned patient' s phone call today she said that the medication she takes at night, Zyprexa was causing her to sweat and have double vision; patient was not able to articulate for how long the double vision lasted but she said that she stopped taking this medication and both symptoms fully resolved. She says she feels fine now. She wanted to know if it was okay for her to be off the medication and public relations writer explai ashvin that if she is doing well and feeling good then it is okay for her to be off of it. Commercial Account Officer looked at chart and realized that she has her psychiatric appointment today at 10:20am, which was in 5 minutes...pt said she and her provider reschedule the appointment which she said will happen soon. Patient says she feels fine discussing it further with her provider. Diagnostics Labs Results: 04/24/22 07:35 Discharge Plan Discharge Anticipated Discharge Date/Time: 05/18/22 10:23 Patient Disposition: Hospice - Home Discharge Diagnosis: MDD, recurrent, severe with psychotic symptoms, in full remission (r/o bipolar II) Referrals: Therapy: Jewels Foley [Other] - 05/05/22 12:30 pm (This is a video Telehealth appointment) Psychiatry: BALBIR Sanford [Other] - 05/18/22 10:20 am (This is a video Telehealth appointment) Morena Nunez [Other] - 05/10/22 8:30 am (*This is an in-person Primary Care Physician (PCP) visit* ) Discharge Medications: New buspirone 10 mg Tablet 20 mg PO BID 30 Days Qty: 120 0RF clonazepam 1 mg Tablet 1 mg PO BID 30 Days Qty: 60 0RF escitalopram oxalate 10 mg Tablet 10 mg PO DAILY 30 Days Qty: 30 0RF Rx Instructions: discontinue Celexa olanzapine 5 mg Tablet 5 mg PO BEDTIME 30 Days Qty: 30 0RF Discharge Orders: Discharge Order (Routine); Ordered 04/28/22 Ordered By: Ed Bradford Diet: Regular diet Activity on Discharge: As tolerated Stand Alone Forms: Patient Portal Discharge page, Community Support Care Plan Goals: Maintain mood and safe behaviors Take medications as prescribed Continue to pursue sobriety Practice coping skills Continue with outpatient providers and reach out to them as needed Health Concerns: Mood stability and behaviors Sobriety Plan of Treatment: Follow up with your PCP, psychiatric provider and other outpatient providers regarding above concerns Take medications as prescribed Assessment: Risk assessment at time of discharge:? Patient was interviewed prior to discharge and found to be fully oriented and without any SI or HI. Patient has insight and demonstrates good judgment in terms of wanting to pursue treatment. Patient is not in imminent risk of harm to self or others and has a safety plan that includes presenting to the closest ER or calling 911 if feeling unsafe.? Patient has been observed closely by nursing and unit staff throughout admission; patient has not engaged in any behaviors that suggest dangerousness to self or others and has demonstrated appropriate behaviors and impulse control Discharge Date/Time: 04/28/22 18:10 Assessment & Plan I spent minutes with the patient and/or on the patient floor today, greater than?50% of which was spent counseling/coordinating care.
== END 2022-04-28 18:10 | disposition hospice, home (50) | DRG 754 ==
PROVIDERS: Registered Nurse; Admitting Provider Psychiatry & Neurology Psychiatry; Visit Provider Psychiatry & Neurology Psychiatry
DX: F32.9 Major depressive disorder, single episode, unspecified (principal); F10.11 Alcohol abuse, in remission; F43.10 Post-traumatic stress disorder, unspecified; F17.200 Nicotine dependence, unspecified, uncomplicated; F12.10 Cannabis abuse, uncomplicated; Z87.891 Personal history of nicotine dependence; Z79.899 Other long term (current) drug therapy
CPT/HCPCS: 36415; 80053; 80061; 82607; 82746; 83036; 83735; 84439; 84443